=== PATIENT | female | born 1950 | race Caucasian/White ===

== ENCOUNTER 2019-06-19 09:39 | Outpatient (CLI) | payer MEDICARE, OTHER, SELFPAY ==
--- NOTE | 2019-06-19 | XR_ITS ---
WS: [id number] CHEST 2 VIEWS HISTORY: COUGH COMPARISON: 06/20/2013 Lungs: Clear with no abnormality. No pleural effusion or pneumothorax. Cardiac size: Normal. Mediastinum/Aorta: Mild atherosclerosis aorta. Bones: Normal. XR/XR chest 2V* [id number] IMPRESSION: Mild atherosclerosis aorta. No acute findings.
== END 2019-06-19 09:40 | disposition home or self-care (01) ==
PROVIDERS: Family Provider Physician Assistant; PCP Physician Assistant; Visit Provider Physician Assistant
DX: Z76.89 Persons encountering health services in other specified circumstances (principal)

== ENCOUNTER 2019-08-17 06:04 | Day surgery (SDC) | payer MEDICARE, OTHER, SELFPAY ==
[2019-08-17] VITALS (16 sets, daily range): BP systolic 98–152; BP diastolic 66–98; PULSE 58–99; RESP 12–18; TEMP 36.4–36.8; O2SAT 95–100; BMI 29.2; BMI 30.2
--- NOTE | 2019-08-17 05:56 | XACV_ITS ---
Exam Room: 1 Ht: 152 cm Wt: 68 kg BSA: 1.72 m2 Gender: Female : 1950 Any Known Allergies: Other Exam Priority: Routine Procedure(s): Procedure Description: Diagnostic procedure Procedure Description: Left Heart Catheterization Procedure Description: Left ventriculography Procedure Description: Coronary Angiography Diagnostic Cath Status: Elective Diagnostic Findings Patient has a previously placed proximal LAD stent. At that time she had fairly atypical angina and her stress test was normal. Since then she has been very nervous about the recurrence of her coronary disease. She has been having chest pain off and on. She has refused stress testing because of the previous false negative. She requested coronary angiography. Coronary angiography reveals right coronary artery dominance. Her coronary arteries are normal. The previously placed LAD stent is widely patent without any evidence of restenosis. Conclusions Normal coronary arteries with patent left anterior descending stent. Normal left ventricular function. Interventional RX Recommendation: none Diagnostic RX Recommendation: none LV EDP: 65 mmHg Ejection Fraction: 65.0 % Pressures Phase:Rest AO : 136 mmHg / 69 mmHg ( 96 mmHg ) @ 2:49:00 AM 129 mmHg / 65 mmHg ( 93 mmHg ) @ 2:56:00 AM 130 mmHg / 55 mmHg ( 92 mmHg ) @ 2:56:00 AM LV : 131 mmHg / -8 mmHg / @ 2:55:00 AM 136 mmHg / -6 mmHg / @ 2:55:00 AM 120 mmHg / -6 mmHg / @ 2:56:00 AM 123 mmHg / -6 mmHg / @ 2:56:00 AM Valves Phase:DefaultPhase AV : 0.0 mmHg @ 7:59:45 AM 0.0 mmHg @ 7:59:45 AM AV Mean Gradient: 0.0 mmHg @ 7:59:45 AM Clinical Evaluation EBL: 5mL-10mL Procedural Details Procedure Consent Obtained. Current Diagnosis : Chest Pain. Pre-Procedure Time Out. Identified patient by full name and date of as verbalized by the patient/guarantor. Does the consent match the physician's order: Yes. Accurate & Complete Informed Consent: Yes. Inpatient/Outpatient History & Physical on Chart: Yes. If H&P is completed, is and addenduem needed: No; If yes, is the addendum complete: No. Visualize and Verify Site with Patient/Guarantor: N/A. Relevant Radiology Images available: Yes. The risks, benefits, and alternatives of sedation and/or procedure were discussed by physician. The patient agrees to continue. Procedure started. [facility] Clinical Fraility Score: 3: Managing Well. Registered Nurse Float Pool Indications: Stable Known CAD. Chest Pain Symptom Assessment: Atypical Angina. Cardiovascular Instability: No. Correct patient, site and procedure confirmed by cath team. Current diagnosis: Stable known CAD. PERRLA. Strong, equal hand supervisor industrial garment bilaterally. Lungs clear x 5 lobes. IV Site on Arrival: 20 gauge in the right anticubital. IV Fluids: 0.9% NaCl at KVO. 0 mL infused prior to laboratory scientist. Pre Procedural Pulses: bilateral dorsalis pedis was Doppled. Pre Procedural Pulses: bilateral posterior tibial was Doppled. Pre Procedural Pulses: bilateral radial was 2+. Oxygen started at 2liters/min via nasal canula. bilateral groins was prepped with chloroprep then draped in the usual sterile fashion. Physician notified. Baseline sample Acquired. HR: 73 BPM. Patient's family unavailable. Equipment: 5F - Femoral. Physician arrived. Heparinized Saline (2 units/mL), 1000 mL bag. Cardiac Cath Pack. ACIST Manifold Kit Model BT 2000. Inventory is JJ 5F 11cm Selin Plus Sheath. Physician scrubbed in. Immediate Pre-Procedure Time Out. Correct Patient: Yes; Correct Procedure: Yes; Correct Site: Yes; Correct Patient Position: Yes; Correct Supplies: Yes; Dried Flammable Prep: Yes; Blood Products Available: N/A;. Lidocaine 1% infiltrated to the right groin. Arterial access obtained. A CRD 5F JL4 Diagnostic Catheter was advanced over the wire and used for Left coronary angiography. Multiple views taken of left coronary artery. Sindi Martino RN, ENROBER TENDER was relieved by RT Drew(R), ENROBER TENDER as monitoring person. Catheter out. A CRD 5F JR4 Diagnostic Catheter was advanced over the wire and used for Right coronary angiography. Multiple views taken of right coronary artery. Catheter out. A CRD 5F 145 Angled Pig Diagnostic Catheter was advanced over the wire and used for Ventriculography. EDP Sample taken: LV 131/-9,14; HR: 71 BPM; SpO2: 97%. LV gram performed in HOLT @ 10 mL/second for a total of 30 mL. Patient EF: Normal. LV EDP: 65. EDP Sample taken: LV 120/-7,13; HR: 74 BPM; SpO2: 99%. Pullback taken: LV 123/-7,14; AO 129/65(93); Mean: 0mmHg, Peak to Peak: 0mmHg, SEP: 7sec/min; HR: 72 BPM; SpO2: 99%. Physician scrubbed out. A Suture was successful obtaining hemostatsis at the Right Femoral artery insertion site. Sheath(s) sutured into position with 2-0 silk and sterile 4x4's and Op-site applied over the site. No oozing or signs and symptoms of hematoma noted. Arterial sheath flushed and connected to tranducer and pressure bag with heparinized saline. Post Procedure: Pulses reassessed and unchanged. PERRLA. Strong, equal hand supervisor industrial garment bilaterally. No VTE prophylaxis required. Medication's Wasted: Lidocaine 1% = 10 mL. Medication's Wasted: Heparin = 4000 mL. Medication's Wasted: Fentanyl = 50 mcg. Total IV fluids: 200 mL. Fluoro: 1:07. Contrast type used: Omnipaque 300 mgI/mL, 500 mL bottle. [id number]. Post-op diagnosis: Chest Pain. Complications: None. Estimated blood loss: 5mL-10mL. Procedure completed. Patient transferred by bed to ICU. Site: Right Femoral artery Sheath Size: 5 Fr Hemostasis Method: Suture Hemostasis Success: Successful Procedure Medications Start: 7:38 AM Stop: 7:38 AM Medication: Versed Amount: 1 mg Route: I.V. Start: 7:38 AM Stop: 7:38 AM Medication: Fentanyl Amount: 50 mcg Route: I.V. Start: 7:46 AM Stop: 7:46 AM Medication: Versed Amount: 1 mg Route: I.V. I, the attending physician, have reviewed and verified all procedure medications. Yes, all medications given per verbal order History/Risk Factors Hypertension: Yes Dyslipidemia: Yes Peripheral Arterial Disease (PAD): No Myocardial Infarction (NV): No Obesity: No Renal Disease: No Tobacco Use: Never Prior Interventions PCI: Yes CABG: No Valve Surgery: No Date of PCI: 05/06/2018 Report Signatures Finalized by:Dr. Feliz Langston MD on 08/17/2019 8:13:04 AM
[2019-08-17] MEDS: diphenhydrAMINE 50 mg Capsule PO (06:22)
[2019-08-17 06:52] LABS: Basophils % 0.7 %; Eosinophils # 0.2 10^3/uL (0.0-0.8); Eosinophils % 3.9 %; Hematocrit 41.5 % (37.0-47.0); Hemoglobin 13.1 g/dL (11.5-15.3); Lymphocytes # 2.5 10^3/uL (0.8-4.8); Mean Corpuscular HGB Conc 31.6 g/dL (30.0-36.0); Mean Corpuscular Hemoglobin 27.7 pg (28.0-34.0); Mean Corpuscular Volume 87.7 fL (81-99); Mean Platelet Volume 11.1 fL (7.4-10.4); Monocytes # 0.4 10^3/uL (0.2-0.9); Monocytes % 7.8 %; Neutrophils # 2.4 10^3/uL (1.8-7.7); Neutrophils % 43.2 %; Nucleated Red Blood Cells % 0 %; Platelet Count 366 10^3/cmm (130-400); Red Blood Count 4.73 10^6/uL (4.1-5.3); Red Cell Distribution Width 13.9 % (12.1-15.1); White Blood Count 5.6 10^3/uL (4.0-10.0)
[2019-08-17 07:01] LABS: Blood Urea Nitrogen 11 mg/dL (8-23); Calcium 9.4 mg/dL (8.5-10.5); Carbon Dioxide 26 mmol/L (22-29); Chloride 103 mmol/L (98-107); Glomerular Filtration Rate 62.6 mL/min (90-130); Glucose 104 mg/dL (65-115); Osmolality Calculated 288 mOsm/kg (285-295); Sodium 141 mmol/L (136-145)
--- NOTE | 2019-08-17 07:23 | P.HP_ITS ---
Providers/Chief Complaint Admitting Physician: Ivis Primary Care Provider: Estrella Fabian Chief Complaint: Chest Pain History of Present Illness Jihan Sears is a 68 year old female who is being admitted for purposes of coronary angiography. She had an LAD stent placed about a year ago. Since then she has been fairly nervous about her coronary anatomy. She has hypertension, dyslipidemia, Schultz's esophagus, GERD and rheumatoid arthritis. She called on 25 June and wanted to be seen because of chest pain. She saw the nurse practitioner. Prior to that she had influenza. EKG was unremarkable. I spoke to her on that day as well and we agreed to simply watch her until I saw her on the . When I saw her then she had less discomfort but still had a funny sensation in her chest. She gets short of breath at night. She also has shooting sensations into her jaw. She then called back a couple weeks later stating that the chest pain was back and that she felt like she needed to have coronary angiography. Review of Systems General: Reports: 10 or more systems reviewed and unremarkable except in HPI and below Medications/Allergies Home Medications Medication Instructions Recorded Confirmed Last Taken Type aspirin 81 mg tablet,delayed 81 mg PO DAILY 06/26/19 08/16/19 08/16/19 08:30 History release simvastatin 40 mg tablet 40 mg PO DAILY 06/26/19 08/16/19 08/16/19 18:30 History clopidogrel 75 mg tablet 75 mg PO DAILY 07/10/19 08/16/19 08/17/19 04:45 History famotidine 20 mg tablet 20 mg PO BID 07/10/19 08/16/19 08/16/19 18:30 History levocetirizine 5 mg tablet 5 mg PO BID tab 07/10/19 08/16/19 08/16/19 18:30 History levothyroxine 125 mcg PO DAILY 08/16/19 08/16/19 08/17/19 04:45 History pantoprazole 40 mg PO DAILY 08/16/19 08/16/19 08/17/19 04:45 History Allergies Allergy/AdvReac Type Severity Reaction Status Date / Time tetanus toxoid, adsorbed Allergy facial Verified 08/17/19 07:01 swelling PFSH Acute PFSH: Medical History Barretts esophagus CAD (coronary artery disease) Dyslipidemia GERD (gastroesophageal reflux disease) HTN (hypertension) Presence of stent in LAD coronary artery Rheumatoid arthritis Family History Father CAD (coronary artery disease) Family history of premature coronary artery disease Hypertension Mother CAD (coronary artery disease) Grandfather CAD (coronary artery disease) Family/Other Cancer Diabetes Suicide Sister Diabetes Denies family history of Clotting disorder Dementia Hyperlipidemia Psychiatric illness Chronic kidney disease (CKD) Anesthesia complication Bleeding disorder Lung disease Stroke Social History Smoking and tobacco status: never smoked Second hand smoke exposure: Yes Alcohol intake: never Vitals/I&O/Wt Last Vital Signs Temp 98.3 F 08/17/19 06:54 Pulse 81 08/17/19 06:54 Resp 18 08/17/19 06:54 BP 152/98 08/17/19 06:54 Pulse Ox 99 08/17/19 06:54 Weight last 48 hrs Weight 150 lb Weight 150 lb Physical Exam 2 Narrative: EXAM NARRATIVE: GENERAL: In general she looks and feels well HEENT: Exam within normal limits. NECK: Supple without jugular vein distention. The carotid upstroke is normal without bruits. BACK: Exam normal. LUNGS: Clear. HEART: Regular rate and rhythm. ABDOMEN: Benign without organomegaly or tenderness. EXTREMITIES: No edema. NEUROLOGIC: Exam normal. SKIN: Unremarkable. Data : 08/17/19 06:40 08/17/19 06:40 A&P Assessment and plan (1) HTN (hypertension): Status: Acute (2) Presence of stent in LAD coronary artery: Status: Acute (3) Dyslipidemia: Status: Acute (4) CAD (coronary artery disease): Status: Acute Additional A&P Information She will undergo coronary angiography. Previous procedure could not be accomplished via the wrist so we will use a groin approach. Attestations Medical Necessity Statement*: Outpatient in a bed. Expected discharge later today. Coding Level of Care Code New Pt Acute Maintenance Scheduler for Liana Fwd Patient Type New History Detailed Exam Detailed Medical Decision Making Moderate Complexity Diagnoses HTN (hypertension) I10 Presence of stent in LAD coronary artery Z95.5 Dyslipidemia E78.5 CAD (coronary artery disease) I25.10
--- NOTE | 2019-08-17 08:01 | W.PM.OPSUD ---
Surgery/Procedure H&P Update DATE OF PROCEDURE: August 17, 2019 DATE H&P PERFORMED: 08/17/19 PLANNED PROCEDURE: Operation Date: 08/17/19 07:00 Proposed Procedures p Cardiac Catheterization(Left) - Feliz Langston MD PATIENT REASSESSED PRIOR TO SEDATION, WITH NO CHANGE NOTED: Yes PHYSICAL EXAM: alert, oriented x 3, clear to auscultation bilaterally, regular rate & rhythm and operative site marked AIRWAY EVAL/ANESTHESIA PLAN: normal airway, ASA II, Local Anesthesia, Risks, benefits & alternatives of sedation and/or procedure discussed and Patient agrees to continue as planned
[2019-08-17] MEDS: sodium chloride 0.9% 1,000 ML 100 ML IV (09:03)
--- NOTE | 2019-08-17 14:32 | PC.NURSE ---
PATIENT SLEPT WELL INBETWEEN PULSE AND SITE CHECKS. UP TIME WAS 1345 WE AMBULATED THE UNIT AND SHE DID EXCELLENT. VITALS WNL. SITE STABLE. IV SITE REMOVED PRIOR TO DISCHARGE. HER ACTUAL SHEATH REMOVAL WAS UNEVENTFUL, PRESSURE HELD FOR 20 MIN NO HEMATOMA OR BLEEDING EXPERIENCED.
== END 2019-08-17 14:40 | disposition home or self-care (01) ==
LOC: CCL 06:06 → ICU 07:14
PROVIDERS: Family Provider Physician Assistant; PCP Physician Assistant; Visit Provider Internal Medicine Cardiovascular Disease
DX: I10 Essential (primary) hypertension (principal); Z95.5 Presence of coronary angioplasty implant and graft; E78.5 Hyperlipidemia, unspecified; I25.10 Atherosclerotic heart disease of native coronary artery without angina pectoris; Z82.49 Family history of ischemic heart disease and other diseases of the circulatory system
CPT/HCPCS: 12345; 36415; 80048; 85025; 93452; C1769; C1887; C1894; J1644; J2001; J2250; J3010; J7030; Q0163; Q9967

== ENCOUNTER → 2019-08-24 12:00 | Outpatient (BNVA) | payer MEDICARE, OTHER, SELFPAY | PROVIDERS: Family Provider Physician Assistant; PCP Physician Assistant; Visit Provider Nurse Practitioner Family | DX: I25.10 Atherosclerotic heart disease of native coronary artery without angina pectoris (principal) | CPT/HCPCS: 80048 ==

== ENCOUNTER 2020-02-23 08:48 | Outpatient (CLI) | payer MEDICARE, OTHER, SELFPAY ==
--- NOTE | 2020-02-23 08:53 | NM_ITS ---
WS: [id number] THREE-PHASE BONE SCAN HISTORY: KNEE REPLACEMENT, LEFT lateral knee pain. Replacement 18 years ago. COMPARISON: 01/18/2020 radiographs. Patient is is injected with 25.6 mCi Tc99m HDP intravenously. Immediate angiographic phase imaging is performed over the area of concern. Static blood pool imaging also performed. Two-hour whole-body sc intigrams performed in anterior and posterior projections. Additional large field of view imaging sub mitted as necessary. 3 phase bone scan imaging centered over the knees. There is a photopenic defect in the LEFT knee cent rally from the knee replacement hardware. There is no increased uptake on the angiographic or blood p ool phases. Mild increased uptake in the medial RIGHT lateral tibial plateau from osteoarthritis. There is very m inimal increased uptake on the delayed imaging of the LEFT knee along the tibial plateau. Most likely due to arthritis. No evidence for loosening on the radiographs. Mild degenerative changes at the AC joints bilaterally within the hips bilaterally. NM/NM bone 3 phase [id number] IMPRESSION: 1. No evidence for osteomyelitis involving the LEFT knee arthroplasty. Mild in creased uptake along the tibial plateau of the LEFT knee is probably due to ost eoarthritis. 2. Mild degenerative osteoarthritis involving the medial RIGHT tibial plateau.
== END 2020-02-23 08:49 | disposition home or self-care (01) ==
PROVIDERS: PCP Physician Assistant; Visit Provider Physician Assistant
DX: M25.562 Pain in left knee (principal); Z98.890 Other specified postprocedural states; Z96.652 Presence of left artificial knee joint; M17.11 Unilateral primary osteoarthritis, right knee
CPT/HCPCS: 78315; A9561

== ENCOUNTER 2020-10-30 06:00 | Outpatient (RCR) | payer MEDICARE, OTHER, SELFPAY | END 2020-11-23 23:59 | disposition home or self-care (01) | LOC: SPT 06:00 | PROVIDERS: PCP Physician Assistant; Referring Provider Student in an Organized Health Care Education/Training Program; Visit Provider Student in an Organized Health Care Education/Training Program | DX: Z47.1 Aftercare following joint replacement surgery (principal); Z96.651 Presence of right artificial knee joint | CPT/HCPCS: 97110; 97161 ==

== ENCOUNTER 2020-11-24 06:00 | Outpatient (RCR) | payer MEDICARE, OTHER, SELFPAY | END 2020-12-24 23:59 | disposition home or self-care (01) | LOC: SPT 06:00 | PROVIDERS: PCP Physician Assistant; Referring Provider Student in an Organized Health Care Education/Training Program; Visit Provider Student in an Organized Health Care Education/Training Program | DX: Z47.1 Aftercare following joint replacement surgery (principal); Z96.651 Presence of right artificial knee joint | CPT/HCPCS: 97110 ==

== ENCOUNTER 2020-12-16 11:35 | Outpatient (CLI) | payer MEDICARE, OTHER, SELFPAY ==
--- NOTE | 2020-12-16 11:43 | MM_ITS ---
WS: [id number] BILATERAL DIGITAL SCREENING MAMMOGRAPHY WITH CAD CLINICAL INFORMATION: SCREENING HISTORY: Screening mammogram. No current complaints. COMPARISON: September 14, 2018 TECHNIQUE: Bilateral CC and MLO views. FINDINGS: Scattered fibroglandular densities bilaterally. Stable intramammary lymph nodes outer right breast. N o suspicious focal mass, asymmetry, calcifications, or architectural distortion. No evidence of malig gifty. MM/[place] [id number] IMPRESSION: BI-RADS: 2-Benign FOLLOW UP: 1 Year Follow-up Recommend return to annual screening mammography.
== END 2020-12-16 11:36 | disposition home or self-care (01) ==
LOC: RADSHAW 11:41
PROVIDERS: PCP Physician Assistant; Visit Provider Physician Assistant
DX: Z12.31 Encounter for screening mammogram for malignant neoplasm of breast (principal)
CPT/HCPCS: 77067

== ENCOUNTER 2021-02-16 10:56 | Emergency (ER) | payer MEDICARE, OTHER, SELFPAY ==
[2021-02-16 11:07] VITALS: BP 165/87; PULSE 64; RESP 16; TEMP 37; O2SAT 100; BMI 25.4
--- NOTE | 2021-02-16 11:13 | CTR_ITS ---
PROCEDURE INFORMATION: Exam: CTA Chest With Contrast Exam date and time: 02/16/2021 11:13 AM Age: 70 years old Clinical indication: Other: Rlq and flank pain; Abdominal pain; Localized; Right lower quadrant (rlq); Additional info: Eval aaa TECHNIQUE: Imaging protocol: Computed tomographic angiography of the chest with contrast. 3D rendering (Not supervised by radiologist): MIP and/or 3D reconstructed images were created by the technologist. Radiation optimization: All CT scans at this facility use at least one of these dose optimization techniques: automated exposure control; mA and/or kV adjustment per patient size (includes targeted exams where dose is matched to clinical indication); or iterative reconstruction. Contrast material: OMNI 350; Contrast volume: 95 ml; Contrast route: INTRAVENOUS (IV); COMPARISON: CR Hip 2-3v RIGHT wwo Pelv* [id number] 12/13/2017 3:32 PM RADIATION DOSE METRICS: Total DLP (mGy-cm): 632.65 FINDINGS: Limitations: The images of the chest again at the bottom of the aortic arch. The aortic arch and above are not imaged in the study. Pulmonary arteries: Normal. No pulmonary emboli. Aorta: There is mild calcification of the visualized portion of the thoracic aorta. No aortic dilatation or dissection is seen in the visible portion aorta. Lungs: Unremarkable. No consolidation. No masses. Pleural spaces: Unremarkable. No pneumothorax. No pleural effusion. Heart: Heart is mildly enlarged. There is coronary artery calcification. Lymph nodes: Unremarkable. No enlarged lymph nodes. Diaphragm: There is a small sliding hiatal hernia. Bones/joints: Degenerative changes are present in the spine with scattered sclerosis and osteophytes. Soft tissues: Unremarkable. IMPRESSION: 1. Hiatal hernia. 2. Coronary artery calcification. 3. Mild atherosclerotic plaquing in the visualized portion of the thoracic aorta but no aneurysm or dissection seen. PROCEDURE INFORMATION: Exam: CTA Abdomen and Pelvis With Contrast Exam date and time: 02/16/2021 11:13 AM Age: 70 years old Clinical indication: Other: Rlq and flank pain; Abdominal pain; Localized; Right lower quadrant (rlq); Additional info: Eval aaa TECHNIQUE: Imaging protocol: Computed tomographic angiography of the abdomen and pelvis with contrast material. 3D rendering (Not supervised by radiologist): MIP and/or 3D reconstructed images were created by the technologist. Radiation optimization: All CT scans at this facility use at least one of these dose optimization techniques: automated exposure control; mA and/or kV adjustment per patient size (includes targeted exams where dose is matched to clinical indication); or iterative reconstruction. Contrast material: OMNI 350; Contrast volume: 95 ml; Contrast route: INTRAVENOUS (IV); COMPARISON: CR Hip 2-3v RIGHT wwo Pelv* [id number] 12/13/2017 3:32 PM RADIATION DOSE METRICS: Total DLP (mGy-cm): 632.65 FINDINGS: Aorta: There is atherosclerotic calcification of the aorta and iliac arteries. There is no aortic aneurysm or dissection. Celiac trunk and mesenteric arteries: No occlusion or significant stenosis. Renal arteries: No occlusion or significant stenosis. Right iliac arteries: No occlusion or significant stenosis. Left iliac arteries: No occlusion or significant stenosis. Liver: There is a benign 18 mm cyst in the right lobe of the liver. Gallbladder and bile ducts: Cholecystectomy. Normal bile ducts. Pancreas: Unremarkable. No mass. No ductal dilation. Spleen: Unremarkable. No splenomegaly. Adrenal glands: Unremarkable. No mass. Kidneys and ureters: Unremarkable. No solid mass. No hydronephrosis. Stomach and bowel: There is prominence of the amount of stool in the colon and rectum which may indicate constipation. There is no bowel obstruction or dilatation. Appendix: No evidence of appendicitis. Intraperitoneal space: Unremarkable. No free air. No significant fluid collection. Lymph nodes: Unremarkable. No enlarged lymph nodes. Urinary bladder: Unremarkable. No mass. Reproductive: Unremarkable as visualized. Bones/joints: Chronic degenerative changes are present in the spine with joint space narrowing sclerosis and osteophytes. No acute bony abnormality. Soft tissues: Unremarkable. CT/CT angio abdomen pelvis [id number] IMPRESSION: 1. No acute abnormalities are seen in the abdomen and pelvis. No evidence of aortic aneurysm or dissection. 2. Prominent amount of stool in the colon may indicate constipation. Radiation Dose CTDIVOL = (mGy): DLP = 632.65~632.65 (mGy-cm)
--- NOTE | 2021-02-16 11:14 | ECG_ITS ---
[facility] Test Date: 2021-02-16 Pat Name: Jihan Sears Department: Room: Gender: Female Clinical Project Leader: : 1950 Requested By: Mone Castro Order Number: [id number] Iraida MD: Kiki Govea M.D. Measurements Intervals Dumont Rate: 50 P: 41 PA: 156 QRS: -3 QRSD: 92 T: 13 QT: 448 QTc: 409 Interpretive Statements SINUS BRADYCARDIA LOW QRS VOLTAGE IN PRECORDIAL LEADS [QRS DEFLECTION < 1.0 mV IN CHEST LEADS] No previous ECG available for comparison Electronically Signed On 02-16-2021 18:40:22 CDT by Kiki Govea M.D. [id number]
--- NOTE | 2021-02-16 11:39 | W.ED.GENADLT ---
HPI - General Adult General: Chief complaint: Nausea/Vomiting/Diarrhea Stated complaint: R FLANK, NAUSEA, LIGHT HEADED Time Seen by Provider: 02/16/21 11:15 History of Present Illness: HPI narrative: Patient is a 70-year-old female with history of cholecystectomy, prior tubal ligation presenting to the emergency room with sided flank pain with nausea since yesterday. Patient says that she was at home sitting when this all started. Patient denies any dysuria/polyuria/hematuria. Patient reports significant nausea despite no vomiting. Patient reports decreased p.o. intake. No history of smoking, aortic aneurysm, high blood pressure. Patient has no new vaginal discharge, melena or hematochezia. No complaints of chest pain shortness breath, palpitation at this time. Reports mild lightheadedness whenever she has episodes of pain. No history of kidney stones in the past. Onset: 1 day ago Duration:1 day Location:home Severity: modeate Review of Systems Narrative: Constitutional: No fever, no chills. HEENT: No vision changes CV: No chest pain, no palpitations PULM: no cough, no dyspnea. GI: +R lateral abdominal pain, +N/-V/-D. : No dysuria MSKEL: No muscle pain SKIN: No new rashes, no lesions. NEURO: No headache, no focal weakness. +occasional light-headedness HEME: No visible bruises PSYCH: Normal mood PFSH ED PFSH: Medical History Barretts esophagus CAD (coronary artery disease) Dyslipidemia GERD (gastroesophageal reflux disease) HTN (hypertension) Presence of stent in LAD coronary artery Rheumatoid arthritis Family History Father CAD (coronary artery disease) Family history of premature coronary artery disease Hypertension Mother CAD (coronary artery disease) Grandfather CAD (coronary artery disease) Family/Other Cancer Diabetes Suicide Sister Diabetes Denies family history of Clotting disorder Dementia Hyperlipidemia Psychiatric illness Chronic kidney disease (CKD) Anesthesia complication Bleeding disorder Lung disease Stroke Social History Smoking and tobacco status: never smoked Second hand smoke exposure: Yes Alcohol intake: never Female Reproductive History: Date of last menstrual period: 07/18/20 Physical Exam Narrative: EXAM NARRATIVE: Head: Atraumatic Eyes: PERRL, conjunctiva without injection ENT: Mucous membrane moist NECK: Supple, ROM intact LUNGS: LCTAB, no crackles/rhonchi CV: RRR ABDOMEN: Soft, +R lateral flank tenderness to palpation. NO guarding rebound, guarding, rigidity. +R CVA tenderness to percussion. Neg Zarate/Neg McBurney's point tenderness, no suprabupic tenderness to palpation. EXTREMITY: Normal ROM SKIN: No rash or erythema NEURO: Awake and alert, no focal motor deficits PSYCH: Normal mood and affect Course Vital Signs: Vital signs: Vital Signs Temperature 98.6 F 02/16/21 11:07 Pulse Rate 65 02/16/21 14:16 Respiratory Rate 16 02/16/21 11:57 Blood Pressure 165/87 02/16/21 11:07 Pulse Oximetry 100 02/16/21 14:16 MDM - General Adult MDM Narrative: Medical decision making narrative: 62-year-old patient presenting to the emergency room for evaluation of sided flank pain, nausea/decreased p.o. intake. On exam, patient has right flank tenderness but CVA tenderness. Rest of exam within normal limit. Come: CBC, CMP, lipase, UA, CT abdomen+pelvis, EKG, troponin Intervention: IVF and morphine On reassessment, white count within normal limit. EKG nonischemic, troponin within normal limit. CT abdomen pelvis not showing signs of aortic aneurysm. Patient has signs of UTI on UA. Given onset of flank pain, this could be early pyelonephritis. This time, patient has no leukocytosis, afebrile, is able to tolerate p.o. we will treat outpatient with Bactrim DS x14 days. No signs of hydronephrosis. Patient is noted to have colonic stool. Findings discussed extensively with patient who agrees with outpatient follow-up at this time. Rx bactrim DS x 14 days for early pyelonephritis and zofran PRN for nausea/vomiting Disposition: Discharge. Patient counseled regarding diagnostic impression, treatment plan. Patient given ED strict return precautions to return for continuation, worsening, or development of new symptoms. Instructed to f/u w/ PCP regarding symptoms today. Patient verbalized understanding. Lab Data: Labs: Lab Results 02/16/21 02/16/21 02/16/21 11:30 11:30 11:30 WBC 6.3 10^3/uL 10^3/ uL (4.0-10.0) RBC 4.84 10^6/uL 10^6 /uL (4.1-5.3) Hgb 12.9 g/dL g/dL (11.5-15.3) Hct 42.9 % % (37.0-47.0) MCV 88.6 fl fl (81-99) MCH 26.7 pg L pg (28.0-34.0) MCHC 30.1 g/dL g/dL (30.0-36.0) RDW 13.7 % % (12.1-15.1) Plt Count 378 10^3/cmm 10^3 /cmm (130-400) MPV 11.0 fL H fL (7.4-10.4) Neut % (Auto) 62.0 % % Lymph % (Auto) 27.5 % % Sebastian % (Auto) 7.5 % % Eos % (Auto) 1.6 % % Baso % (Auto) 1.1 % % Neut # (Auto) 3.90 10^3/uL 10^3 /uL (1.8-7.7) Lymph # (Auto) 1.7 10^3/uL 10^3/ uL (0.8-4.8) Sebastian # (Auto) 0.5 10^3/uL 10^3/ uL (0.2-0.9) Eos # (Auto) 0.1 10^3/uL 10^3/ uL (0.0-0.8) Baso # (Auto) 0.1 10^3/uL 10^3/ uL (0.0-0.1) Nucleated RBC % (a uto) 0 % % Nucleated RBCs # 0.0 /100WBC /100W BC Sodium 142 mmol/L mmol/L (136-145) Potassium 4.5 mmol/L mmol/L (3.5-5.1) Chloride 106 mmol/L mmol/L (98-107) Carbon Dioxide 26 mmol/L mmol/L (22-29) Anion Gap 14.5 (5-19) BUN 10 mg/dL mg/dL (8-23) Creatinine 0.7 mg/dL mg/dL (0.5-0.9) GFR Calculation 83.2 mL/min L mL/ min (90-130) Glucose 109 mg/dL mg/dL (65-115) Calculated Osmolal ity 294 mOsm/kg mOsm/ kg (285-295) Calcium 9.0 mg/dL mg/dL (8.5-10.5) Total Bilirubin 0.2 mg/dL mg/dL (0.15-1.2) AST 13 U/L U/L (0-32) ALT 9 U/L U/L (0-33) Alkaline Phosphata se 102 IU/L IU/L (35-105) Troponin T Gen 5 n g/L 7 ng/L ng/L (0-10) Total Protein 7.0 g/dL g/dL (6.6-8.7) Albumin 4.2 g/dL g/dL (3.5-5.2) Globulin 2.8 g/dL g/dL (1.3-4.6) Lipase 35 U/L U/L (13-60) Urine Color Urine Appearance Urine pH Ur Specific Gravit y Urine Protein Urine Glucose (UA) Urine Ketones Urine Blood Urine Nitrate Urine Bilirubin Urine Urobilinogen Ur Leukocyte Payton ase Urine RBC Urine WBC Ur Squamous Epith Cells Amorphous Sediment Urine Bacteria Urine Mucus Nasal/Oral COVID-1 9 PCR SARS-CoV-2 Ag (Rap id) 02/16/21 02/16/21 02/16/21 11:54 11:54 12:31 WBC RBC Hgb Hct MCV MCH MCHC RDW Plt Count MPV Neut % (Auto) Lymph % (Auto) Sebastian % (Auto) Eos % (Auto) Baso % (Auto) Neut # (Auto) Lymph # (Auto) Sebastian # (Auto) Eos # (Auto) Baso # (Auto) Nucleated RBC % (a uto) Nucleated RBCs # Sodium Potassium Chloride Carbon Dioxide Anion Gap BUN Creatinine GFR Calculation Glucose Calculated Osmolal ity Calcium Total Bilirubin AST ALT Alkaline Phosphata se Troponin T Gen 5 n g/L Total Protein Albumin Globulin Lipase Urine Color Yellow (Yellow) Urine Appearance Sl hazy (CLEAR) Urine pH 7 (5-7) Ur Specific Gravit y 1.010 (1.005-1.030) Urine Protein Neg (Negative) Urine Glucose (UA) Norm (Normal) Urine Ketones Negative (Negative) Urine Blood Neg (Negative) Urine Nitrate Negative (Negative) Urine Bilirubin Neg (Negative) Urine Urobilinogen Norm mg/dL mg/dL (Negative) Ur Leukocyte Payton ase 2+ H (Negative) Urine RBC None /hpf /hpf (0-2) Urine WBC 10-15 /hpf H /hpf (0-5) Ur Squamous Epith Cells Rare /hpf /hpf (0-5) Amorphous Sediment Not Reportable Urine Bacteria 4+ /hpf H /hpf (NONE) Urine Mucus Trace /hpf /hpf Nasal/Oral COVID-1 9 PCR Not detected SARS-CoV-2 Ag (Rap id) Negative (Negative) Imaging Data^: Other Imaging: Radiologist's impression: [employer] [id number] [place] [id number] Scan ReportSigned Patient: Jihan Sears #: [id number]: 3Acct#:[id number]/Sex: 70 / FADM Date: 02/16/21Loc: ERRoom/Bed:Attending Dr: Ordering Provider/Ordering MD: Mone Castro MD Date of Service: 02/16/21 Procedure(s): CT angio abdomen pelvis 83254 Accession Number(s): [id number] Report Number: [id number] PROCEDURE INFORMATION: Exam: CTA Chest With Contrast Exam date and time: 02/16/2021 11:13 AM Age: 70 years old Clinical indication: Other: Rlq and flank pain; Abdominal pain; Localized; Right lower quadrant (rlq); Additional info: Eval aaa TECHNIQUE: Imaging protocol: Computed tomographic angiography of the chest with contrast. 3D rendering (Not supervised by radiologist): MIP and/or 3D reconstructed images were created by the technologist. Radiation optimization: All CT scans at this facility use at least one of these dose optimization techniques: automated exposure control; mA and/or kV adjustment per patient size (includes targeted exams where dose is matched to clinical indication); or iterative reconstruction. Contrast material: OMNI 350; Contrast volume: 95 ml; Contrast route: INTRAVENOUS (IV); COMPARISON: CR Hip 2-3v RIGHT wwo Pelv* [id number] 12/13/2017 3:32 PM RADIATION DOSE METRICS: Total DLP (mGy-cm): 632.65 FINDINGS: Limitations: The images of the chest again at the bottom of the aortic arch. The aortic arch and above are not imaged in the study. Pulmonary arteries: Normal. No pulmonary emboli. Aorta: There is mild calcification of the visualized portion of the thoracic aorta. No aortic dilatation or dissection is seen in the visible portion aorta. Lungs: Unremarkable. No consolidation. No masses. Pleural spaces: Unremarkable. No pneumothorax. No pleural effusion. Heart: Heart is mildly enlarged. There is coronary artery calcification. Lymph nodes: Unremarkable. No enlarged lymph nodes. Diaphragm: There is a small sliding hiatal hernia. Bones/joints: Degenerative changes are present in the spine with scattered sclerosis and osteophytes. Soft tissues: Unremarkable. IMPRESSION: 1. Hiatal hernia. 2. Coronary artery calcification. 3. Mild atherosclerotic plaquing in the visualized portion of the thoracic aorta but no aneurysm or dissection seen. PROCEDURE INFORMATION: Exam: CTA Abdomen and Pelvis With Contrast Exam date and time: 02/16/2021 11:13 AM Age: 70 years old Clinical indication: Other: Rlq and flank pain; Abdominal pain; Localized; Right lower quadrant (rlq); Additional info: Eval aaa TECHNIQUE: Imaging protocol: Computed tomographic angiography of the abdomen and pelvis with contrast material. 3D rendering (Not supervised by radiologist): MIP and/or 3D reconstructed images were created by the technologist. Radiation optimization: All CT scans at this facility use at least one of these dose optimization techniques: automated exposure control; mA and/or kV adjustment per patient size (includes targeted exams where dose is matched to clinical indication); or iterative reconstruction. Contrast material: OMNI 350; Contrast volume: 95 ml; Contrast route: INTRAVENOUS (IV); COMPARISON: CR Hip 2-3v RIGHT wwo Pelv* [id number] 12/13/2017 3:32 PM RADIATION DOSE METRICS: Total DLP (mGy-cm): 632.65 FINDINGS: Aorta: There is atherosclerotic calcification of the aorta and iliac arteries. There is no aortic aneurysm or dissection. Celiac trunk and mesenteric arteries: No occlusion or significant stenosis. Renal arteries: No occlusion or significant stenosis. Right iliac arteries: No occlusion or significant stenosis. Left iliac arteries: No occlusion or significant stenosis. Liver: There is a benign 18 mm cyst in the right lobe of the liver. Gallbladder and bile ducts: Cholecystectomy. Normal bile ducts. Pancreas: Unremarkable. No mass. No ductal dilation. Spleen: Unremarkable. No splenomegaly. Adrenal glands: Unremarkable. No mass. Kidneys and ureters: Unremarkable. No solid mass. No hydronephrosis. Stomach and bowel: There is prominence of the amount of stool in the colon and rectum which may indicate constipation. There is no bowel obstruction or dilatation. Appendix: No evidence of appendicitis. Intraperitoneal space: Unremarkable. No free air. No significant fluid collection. Lymph nodes: Unremarkable. No enlarged lymph nodes. Urinary bladder: Unremarkable. No mass. Reproductive: Unremarkable as visualized. Bones/joints: Chronic degenerative changes are present in the spine with joint space narrowing sclerosis and osteophytes. No acute bony abnormality. Soft tissues: Unremarkable. CT/CT angio abdomen pelvis 36801 IMPRESSION: 1. No acute abnormalities are seen in the abdomen and pelvis. No evidence of aortic aneurysm or dissection. 2. Prominent amount of stool in the colon may indicate constipation. Radiation Dose CTDIVOL = (mGy): DLP = 632.65~632.65 (mGy-cm) Dictated By:Blaine Llamas By:Blaine Llamas Date/Time:02/16/21 1322DD/ 1113 Discharge Plan Discharge Patient Disposition: Home Clinical Impression: Acute flank pain, Nausea, Acute UTI Condition: Stable Prescriptions: New Bactrim DS 800-160 mg tablet 1 tab PO BID 14 Days Qty: 28 RF: 0 No Action famotidine 20 mg tablet 20 mg PO BID RF: 0 levocetirizine 5 mg tablet 5 mg PO BID RF: 0 aspirin 81 mg tablet,delayed release (DR/EC) 81 mg PO DAILY RF: 0 nitroglycerin 0.4 mg tablet, sublingual 0.4 mg sublingual Q5M PRN (Reason: chest pain) Qty: 25 RF: 2 simvastatin 40 mg tablet 40 mg PO DAILY Qty: 90 RF: 0 pantoprazole 40 mg tablet,delayed release (DR/EC) 40 mg PO DAILY Qty: 90 RF: 3 clopidogrel 75 mg tablet 75 mg PO DAILY Qty: 90 RF: 0 levothyroxine 125 mcg Tablet 125 mcg PO DAILY RF: 0 Discharge Orders: Discharge ED (Routine); Ordered 02/16/21 Ordered By: Mone Castro Referrals: Estrella Fabian PA [Primary Care Provider] - Patient Instructions: Dysuria (ED) Activity Restrictions/Additional Instructions: Please take your antibiotics as instructed. Take zofran as needed for nausea. Come back to the emergency room you have any fever chills, worsening pain, dehydration, nuasea/vomiting any new or concerning complaints. 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
[2021-02-16 11:41] LABS: Basophils # 0.1 10^3/uL (0.0-0.1); Basophils % 1.1 %; Eosinophils # 0.1 10^3/uL (0.0-0.8); Eosinophils % 1.6 %; Hematocrit 42.9 % (37.0-47.0); Hemoglobin 12.9 g/dL (11.5-15.3); Lymphocytes # 1.7 10^3/uL (0.8-4.8); Lymphocytes % 27.5 %; Mean Corpuscular HGB Conc 30.1 g/dL (30.0-36.0); Mean Corpuscular Hemoglobin 26.7 pg (28.0-34.0); Mean Corpuscular Volume 88.6 fl (81-99); Monocytes # 0.5 10^3/uL (0.2-0.9); Monocytes % 7.5 %; Nucleated Red Blood Cells % 0 %; Platelet Count 378 10^3/cmm (130-400); Red Blood Count 4.84 10^6/uL (4.1-5.3); Red Cell Distribution Width 13.7 % (12.1-15.1); White Blood Count 6.3 10^3/uL (4.0-10.0)
[2021-02-16 11:57] VITALS: RESP 16
[2021-02-16] MEDS: morphine 4 mg/mL SDV 1 mL 2 MG IVP (11:57)
[2021-02-16] MEDS: sodium chloride 0.9% 1,000 ML 999 ML IV (11:57)
[2021-02-16 12:04] LABS: Troponin T (5th) Once 7 ng/L (0-10)
[2021-02-16 12:05] LABS: Alanine Aminotransferase 9 U/L (0-33); Albumin Level 4.2 g/dL (3.5-5.2); Alkaline Phosphatase 102 IU/L (35-105); Anion Gap 14.5 (5-19); Aspartate Amino Transferase 13 U/L (0-32); Blood Urea Nitrogen 10 mg/dL (8-23); Carbon Dioxide 26 mmol/L (22-29); Chloride 106 mmol/L (98-107); Creatinine Clr Calc Pharmacy 56.4974; Globulin 2.8 g/dL (1.3-4.6); Glomerular Filtration Rate 83.2 mL/min (90-130); Glucose 109 mg/dL (65-115); Lipase 35 U/L (13-60); Osmolality Calculated 294 mOsm/kg (285-295); Potassium 4.5 mmol/L (3.5-5.1); Sodium 142 mmol/L (136-145); Total Bilirubin 0.2 mg/dL (0.15-1.2)
[2021-02-16 12:40] LABS: SARS Covid-2 Antigen Negative (Negative)
[2021-02-16] MEDS: iohexol 350 mg/mL 100 mL Btl IV (12:58)
[2021-02-16 13:37] LABS: Bilirubin Urine Neg (Negative); Blood Urine Neg (Negative); Glucose Urine UA Norm (Normal); Ketones Urine Negative (Negative); Nitrate Urine Negative (Negative); Protein Urine Neg (Negative); Urine Appearance SL Hazy (CLEAR); Urine Color Yellow (Yellow); pH Urine 7 (5-7)
[2021-02-16 13:38] LABS: Add Urine Microscopic? YES; Leukocyte Esterase Urine 2+ (Negative); Urobilinogen Urine Norm (Negative)
[2021-02-16 13:39] LABS: Add Urine Culture? Yes; Bacteria Urine 4+ /hpf; Mucus Urine TRACE /hpf; Squamous Epithelial Cell Urine RARE /hpf (0-5)
[2021-02-16 14:16] VITALS: PULSE 65; O2SAT 100
[2021-02-18 08:37] LABS: Coronavirus Test Green County Not Detected
== END 2021-02-16 14:16 | disposition home or self-care (01) ==
PROVIDERS: Emergency Provider Emergency Medicine; PCP Physician Assistant
DX: N39.0 Urinary tract infection, site not specified (principal); R10.9 Unspecified abdominal pain; R11.0 Nausea; I25.10 Atherosclerotic heart disease of native coronary artery without angina pectoris; I10 Essential (primary) hypertension; K21.9 Gastro-esophageal reflux disease without esophagitis; E78.5 Hyperlipidemia, unspecified; K22.70 Barrett's esophagus without dysplasia
CPT/HCPCS: 74174; 80053; 81001; 83690; 84484; 85025; 87077; 87086; 87186; 87426; 87635; 93005; 96361; 96374; 99283; J2270; J7030; Q9967

== ENCOUNTER → 2021-08-18 12:06 | Outpatient (BNVA) | payer MEDICARE, OTHER, SELFPAY | PROVIDERS: PCP Physician Assistant; Visit Provider Internal Medicine Cardiovascular Disease | DX: I25.10 Atherosclerotic heart disease of native coronary artery without angina pectoris (principal); K22.70 Barrett's esophagus without dysplasia; I10 Essential (primary) hypertension; Z95.5 Presence of coronary angioplasty implant and graft; E78.5 Hyperlipidemia, unspecified; Z79.82 Long term (current) use of aspirin | CPT/HCPCS: 99213; 99214 ==

== ENCOUNTER 2021-11-17 06:47 | Outpatient (CLI) | payer MEDICARE, OTHER, SELFPAY ==
--- NOTE | 2021-11-17 07:15 | MR_ITS ---
WS: [id number] MRA HEAD TECHNIQUE: Axial 3-D TOF images obtained with axial images and axial, sagittal, and coronal 2-D refor matted images. CLINICAL INFORMATION: TIA COMPARISON: CT 3 FINDINGS: Distal vertebral arteries are patent. Basilar artery is patent. Normal vascularity to the RATE AND COST ANALYST territo ry bilaterally. Both ICAs are patent at the skull base. Normal vascularity to the NURIS and MCA territories bilaterally . No evidence of flow-limiting stenosis or aneurysm. MR/MR angio head wo con [id number] IMPRESSION: Unremarkable intracranial MRA.
--- NOTE | 2021-11-17 08:00 | MR_ITS ---
WS: [id number] MRA CAROTID WITHOUT AND WITH GADOLINIUM ENHANCEMENT TECHNIQUE: Axial 2-D TOF and gadolinium bolus images obtained with axial images and axial, sagittal, and coronal 2-D reformatted images. CLINICAL INFORMATION: TIA COMPARISON: None. FINDINGS: Some images degraded by patient motion. LEFT dominant vertebral artery is patent. Smaller but patent RIGHT vertebral artery. RIGHT: RIGHT common carotid artery is patent. No significant RIGHT ICA stenosis. ICA is patent to the skull base. Retropharyngeal RIGHT cervical ICA. LEFT: LEFT common carotid artery is patent. No significant LEFT ICA stenosis. LEFT ICA is patent to t he skull base. MR/MR angio neck wo con [id number] IMPRESSION: Normal neck MRA.
== END 2021-11-17 06:48 | disposition home or self-care (01) ==
PROVIDERS: PCP Physician Assistant; Visit Provider Physician Assistant
DX: G45.9 Transient cerebral ischemic attack, unspecified (principal)
CPT/HCPCS: 70544; 70547

== ENCOUNTER → 2022-03-06 09:03 | Outpatient (BNVA) | payer MEDICARE, OTHER, SELFPAY | PROVIDERS: PCP Physician Assistant; Visit Provider Internal Medicine Cardiovascular Disease | DX: I25.10 Atherosclerotic heart disease of native coronary artery without angina pectoris (principal); K22.70 Barrett's esophagus without dysplasia; I10 Essential (primary) hypertension; E78.5 Hyperlipidemia, unspecified; Z95.5 Presence of coronary angioplasty implant and graft | CPT/HCPCS: 99213; 99214 ==

== ENCOUNTER → 2022-09-04 08:30 | Outpatient (BNVA) | payer MEDICARE, OTHER, SELFPAY | PROVIDERS: PCP Physician Assistant; Visit Provider Internal Medicine Cardiovascular Disease | DX: K22.70 Barrett's esophagus without dysplasia (principal); I10 Essential (primary) hypertension; Z95.5 Presence of coronary angioplasty implant and graft; E78.5 Hyperlipidemia, unspecified; I25.10 Atherosclerotic heart disease of native coronary artery without angina pectoris | CPT/HCPCS: 99213 ==

== ENCOUNTER 2023-01-11 13:51 | Outpatient (CLI) | payer MEDICARE, OTHER, SELFPAY ==
--- NOTE | 2023-01-11 13:55 | MM_ITS ---
WS: [id number] BILATERAL 3D TOMOSYNTHESIS DIGITAL SCREENING MAMMOGRAPHY WITH CAD CLINICAL INFORMATION: SCREENING HISTORY: Screening mammogram. No current complaints. COMPARISON: 2020 TECHNIQUE: Bilateral CC and MLO views. FINDINGS: Scattered fibroglandular densities bilaterally. No suspicious focal mass, asymmetry, calcifications, or architectural distortion. No evidence of malignancy. Incidental punctate calcifications. IMPRESSION: MM/[place] [id number] BI-RADS: 2-Benign FOLLOW UP: 1 Year Follow-up Recommend return to annual screening mammography.
== END 2023-01-11 13:52 | disposition home or self-care (01) ==
LOC: MOBLMAM 13:54
PROVIDERS: PCP Physician Assistant; Visit Provider Physician Assistant
DX: Z12.31 Encounter for screening mammogram for malignant neoplasm of breast (principal)
CPT/HCPCS: 77063; 77067

== ENCOUNTER → 2023-03-29 10:55 | Outpatient (BNVA) | payer MEDICARE, OTHER, SELFPAY | PROVIDERS: PCP Physician Assistant; Visit Provider Internal Medicine Cardiovascular Disease | DX: K22.70 Barrett's esophagus without dysplasia (principal); I10 Essential (primary) hypertension; Z95.5 Presence of coronary angioplasty implant and graft; E78.5 Hyperlipidemia, unspecified; I25.10 Atherosclerotic heart disease of native coronary artery without angina pectoris | CPT/HCPCS: 99213 ==

== ENCOUNTER 2023-08-09 17:08 | Emergency (ER) | payer MEDICARE, SELFPAY ==
--- NOTE | 2023-08-09 17:11 | XRR_ITS ---
PROCEDURE INFORMATION: Exam: XR Left Hip Exam date and time: 08/09/2023 6:37 PM Age: 72 years old Clinical indication: Injury or trauma; Fall; Blunt trauma (contusions or hematomas); Left; Hip TECHNIQUE: Imaging protocol: Radiologic exam of the left hip. Views: 2 or 3 views hip with pelvis when performed. COMPARISON: CT angio abdomen pelvis [id number] 02/16/2021 12:30 PM FINDINGS: Bones/joints: Subcapital femoral neck fracture with mild impaction and angulation. Hip remains located. Soft tissues: No acute findings . XR/XR hip LT 2-3V wo/w pel* [id number] IMPRESSION: Left femoral neck fracture.
[2023-08-09 17:23] VITALS: BP 124/73; PULSE 75; RESP 16; TEMP 36.6; O2SAT 95
--- NOTE | 2023-08-09 19:22 | ECG_ITS ---
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 Measurements Intervals [place] Rate: 77 P: 31 MD: 162 QRS: -20 QRSD: 87 T: 29 QT: 367 QTc: 417 Interpretive Statements SINUS RHYTHM LOW QRS VOLTAGE IN PRECORDIAL LEADS [QRS DEFLECTION < 1.0 mV IN CHEST LEADS] Nonspecific T wave changes POSSIBLE ANTERIOR MYOCARDIAL INFARCTION , PROBABLY OLD [30 ms Q WAVE IN V3/V4, OR R < 0.2 mV IN V4] Electronically Signed On 08-09-2023 19:40:08 CDT by Kiki Govea M.D. [id number]
--- NOTE | 2023-08-09 19:22 | XRR_ITS ---
PROCEDURE INFORMATION: Exam: XR Chest Exam date and time: 08/09/2023 7:27 PM Age: 72 years old Clinical indication: Injury or trauma; Fall; Blunt trauma (contusions or hematomas) TECHNIQUE: Imaging protocol: Radiologic exam of the chest. Views: 1 view. COMPARISON: CT angio abdomen pelvis [id number] 02/16/2021 12:30 PM FINDINGS: Lungs: No consolidation. Pleural spaces: No pleural effusion. No pneumothorax. Heart/Mediastinum: No cardiomegaly. Bones/joints: No acute findings. XR/XR chest 1V portable [id number] IMPRESSION: No acute findings.
--- NOTE | 2023-08-09 19:28 | ED_ITS ---
HPI - Fall General: Chief Complaint: Fall Stated Complaint: fall, left side hip Time Seen by Provider: 08/09/23 19:21 Source: patient Mode of arrival: ambulatory Limitations: no limitations History of Present Illness: 72-year-old female states that she had m issed a step and fell she had fell on her left side she has pain in her left hip. States not been able to bear any weight on that hip is much worse with movement improved with rest she rates her pain a 2 out of 10 currently denies hitting her head. Associated symptoms-after fall: Denies abdominal pain, chest pain, headache(s) or neck pain Review of Systems Const: Denies: fever(s), chills, body aches or change in appetite ENMT: Denies: throat pain or dental pain Card: Denies: chest pain Resp: Denies: dyspnea GI: Denies: abdominal pain, nausea, vomiting or diarrhea Musc: Reports: extremity pain; Denies: neck pain or back pain Skin/Breast: Denies: rash Neuro: Denies: headache(s) PFSH ED PFSH: Medical History Presence of stent in LAD coronary artery Rheumatoid arthritis Barretts esophagus GERD (gastroesophageal reflux disease) Dyslipidemia CAD (coronary artery disease) HTN (hypertension) Family History Father CAD (coronary artery disease) Family history of premature coronary artery disease Hypertension Mother CAD (coronary artery disease) Grandfather CAD (coronary artery disease) Family/Other Cancer Diabetes Suicide Sister Diabetes Denies family history of Clotting disorder Dementia Hyperlipidemia Psychiatric illness Chronic kidney disease (CKD) Anesthesia complication Bleeding disorder Lung disease Stroke Social History Smoking and tobacco/nicotine status: never used tobacco/nicotine Second hand smoke exposure: Yes Alcohol intake: never Substance/Drug Use: never Physical Exam Const: COMMON NORMALS: no acute distress, patient oriented x3 and healthy appearing HENMT: COMMON NORMALS: normocephalic and atraumatic HEAD & SCALP: normocephalic and atraumatic Neck/C-Spine: COMMON NORMALS: full ROM and supple Chest: COMMONS NORMALS: normal inspection of the chest Resp: COMMON NORMALS: normal respiratory effort Cardio: COMMON NORMALS: regular rate, regular rhythm and No murmurs present (Cardio) RATE: regular rate RHYTHM: regular rhythm Extremity: NARRATIVE EXTREMITY EXAM: Tenderness noted to left hip Neuro: COMMON NORMALS: patient oriented x3, moves all extremities and no focal motor deficits Psych: COMMON NORMALS: mental status grossly normal, Normal thought process present and cooperative THOUGHT PROCESS: Normal thought process present Skin: COMMON NORMALS: no rashes or lesions noted and no wounds GENERAL SKIN EXAM: no rashes or lesions noted Course Vital Signs: Vital signs: Vital Signs Temperature 97.9 F 08/09/23 17:23 Pulse Rate 75 08/09/23 17:23 Respiratory Rate 16 08/09/23 17:23 Blood Pressure 124/73 08/09/23 17:23 Pulse Oximetry 95 08/09/23 17:23 MDM - Fall Medical Decision Making Patient presents here with a left hip fracture from a fall x-ray shows fracture no other injuries noted I spoke to orthopedics along with hospitalist will admit Medical Records I reviewed the patient's medical records. Lab Data I reviewed the patient's lab results. Radiology Impressions Hip/Pelvis X-Ray 08/09/23 17:11 IMPRESSION: Left femoral neck fracture. 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
[2023-08-09 20:40] VITALS: RESP 20; O2SAT 98
[2023-08-09] MEDS: morphine 4 mg/mL SDV 1 mL IVP ×2 (20:40→21:28)
[2023-08-09] MEDS: ondansetron 2 mg/ML SDV 2 mL 4 MG IVP (20:40)
[2023-08-09 20:44] LABS: Basophils # 0.1 10^3/uL (0.0-0.1); Basophils % 0.4 %; Eosinophils # 0.1 10^3/uL (0.0-0.8); Eosinophils % 0.4 %; Hematocrit 42.8 % (36-47); Lymphocytes # 1.7 10^3/uL (0.8-4.8); Lymphocytes % 10.8 %; Mean Corpuscular HGB Conc 32.5 g/dL (30-55); Mean Corpuscular Hemoglobin 29.1 pg (27-33); Mean Corpuscular Volume 89.7 fl (85-98); Mean Platelet Volume 10.4 fL (7.4-10.4); Monocytes # 0.8 10^3/uL (0.2-0.9); Neutrophils # 12.99 10^3/uL (1.8-7.7); Neutrophils % 82.7 %; Nucleated Red Blood Cells % 0 %; Platelet Count 397 10^3/cmm (157-399); Red Blood Count 4.77 10^6/uL (3.85-5.65); Red Cell Distribution Width 13.2 % (12.1-15.1)
[2023-08-09 20:58] LABS: INR 0.89 (0.8-1.2)
[2023-08-09 20:59] VITALS: BP 118/72; PULSE 74; O2SAT 96
--- NOTE | 2023-08-09 20:59 | W.ED.FALL ---
HPI - Fall General: Chief Complaint: Fall Stated Complaint: fall, left side hip Time Seen by Provider: 08/09/23 19:21 Source: patient Mode of arrival: ambulatory [facility] ED PFSH: Medical History Presence of stent in LAD coronary artery Rheumatoid arthritis Barretts esophagus GERD (gastroesophageal reflux disease) Dyslipidemia CAD (coronary artery disease) HTN (hypertension) Family History Father CAD (coronary artery disease) Family history of premature coronary artery disease Hypertension Mother CAD (coronary artery disease) Grandfather CAD (coronary artery disease) Family/Other Cancer Diabetes Suicide Sister Diabetes Denies family history of Clotting disorder Dementia Hyperlipidemia Psychiatric illness Chronic kidney disease (CKD) Anesthesia complication Bleeding disorder Lung disease Stroke Social History Smoking and tobacco/nicotine status: never used tobacco/nicotine Second hand smoke exposure: Yes Alcohol intake: never Substance/Drug Use: never Course Vital Signs: Vital signs: Vital Signs Temperature 97.9 F 08/09/23 17:23 Pulse Rate 74 08/09/23 20:59 Respiratory Rate 20 H 08/09/23 20:40 Blood Pressure 118/72 08/09/23 20:59 Pulse Oximetry 96 08/09/23 20:59 Oxygen Delivery Me thod Room Air 08/09/23 20:59 MDM - Fall Medical Decision Making Patient presents here with a left hip fracture from a fall patient's had multiple surgeries at [facility] and she did not want to be admitted here and wanted to be transferred there for continuity of care with her orthopedic surgeon she has had up there before will transfer. Medical Records I reviewed the patient's medical records. Lab Data I reviewed the patient's lab results. 08/09/23 20:35 08/09/23 20:35 Radiology Impressions Hip/Pelvis X-Ray 08/09/23 17:11 IMPRESSION: Left femoral neck fracture. Chest X-Ray 08/09/23 19:22 IMPRESSION: No acute findings. Laboratory Results WBC 15.70 10^3/uL (3.29-11.43) H 08/09/23 20:35 RBC 4.77 10^6/uL (3.85-5.65) 08/09/23 20:35 Hgb 13.90 g/dL (11.27-16.99) 08/09/23 20: Hct 42.8 % (36-47) 08/09/23 20: MCV 89.7 fl (85-98) 08/09/23 20: MCH 29.1 pg (27-33) 08/09/23 20: MCHC 32.5 g/dL (30-55) 08/09/23 20: RDW 13.2 % (12.1-15.1) 08/09/23 20:35 Plt Count 397 10^3/cmm (157-399) 08/09/23 20: MPV 10.4 fL (7.4-10.4) 08/09/23 20: Neut % (Auto) 82.7 % 08/09/23 20: Lymph % (Auto) 10.8 % 08/09/23 20: Tillman % (Auto) 5.0 % 08/09/23 20: Eos % (Auto) 0.4 % 08/09/23 20: Baso % (Auto) 0.4 % 08/09/23 20:35 Neut # (Auto) 12.99 10^3/uL (1.8-7.7) H 08/09/23 20: Lymph # (Auto) 1.7 10^3/uL (0.8-4.8) 08/09/23 20:35 Tillman # (Auto) 0.8 10^3/uL (0.2-0.9) 08/09/23 20: Eos # (Auto) 0.1 10^3/uL (0.0-0.8) 08/09/23 20: Baso # (Auto) 0.1 10^3/uL (0.0-0.1) 08/09/23: Nucleated RBC % (auto) 0 % 08/09/23: Nucleated RBCs # 0.0 /100WBC 08/09/23 20:35 PT 12.30 SECONDS (12.1-14.9) 08/09/23 20:35 INR 0.89 (0.8-1.2) 08/09/23 20:35 All radiology interpretation(s) finalized by discharge Discharge Plan Discharge Patient Disposition: Xfer Short-Term Hosp Clinical Impression: Closed fracture of left hip Qualifiers: Encounter type: initial encounter Qualified Code(s): S72.002A - Fracture of unspecified part of neck of left femur, initial encounter for closed fracture Condition: Stable Referrals: Estrella Fabian PA [Primary Care Provider] - Coding Level of Care Code ED 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
[2023-08-09 21:10] LABS: Alanine Aminotransferase 18 U/L (0-33); Albumin Level 4.2 g/dL (3.5-5.2); Alkaline Phosphatase 112 U/L (35-105); Anion Gap 18.2 (5-19); Aspartate Amino Transferase 19 U/L (0-32); Blood Urea Nitrogen 12 mg/dL (8-23); Calcium 9.5 mg/dL (8.5-10.5); Carbon Dioxide 23 mmol/L (22-29); Chloride 104 mmol/L (98-107); Creatinine Clr Calc Pharmacy 47.9919; Globulin 3.4 g/dL (1.3-4.6); Glomerular Filtration Rate 61.9 mL/min (90-130); Glucose 123 mg/dL (65-115); Osmolality Calculated 293 mOsm/kg (285-295); Potassium 4.2 mmol/L (3.5-5.1); Sodium 141 mmol/L (136-145); Total Bilirubin 0.3 mg/dL (0.15-1.2); Total Protein 7.6 g/dL (6.6-8.7)
[2023-08-09 21:28] VITALS: RESP 20; O2SAT 92
[2023-08-09] MEDS: sodium chloride 0.9% 1,000 ML 125 ML IV (21:31)
[2023-08-09 22:12] VITALS: BP 112/69; PULSE 78; RESP 20; O2SAT 93
[2023-08-10 00:55] VITALS: BP 116/71; PULSE 72; RESP 18; O2SAT 94
== END 2023-08-10 00:57 | disposition short-term general hospital (02) ==
PROVIDERS: Emergency Provider Emergency Medicine; PCP Physician Assistant
DX: S72.002A Fracture of unspecified part of neck of left femur, initial encounter for closed fracture (principal); Z77.22 Contact with and (suspected) exposure to environmental tobacco smoke (acute) (chronic); E78.5 Hyperlipidemia, unspecified; I25.10 Atherosclerotic heart disease of native coronary artery without angina pectoris; I10 Essential (primary) hypertension; W19.XXXA Unspecified fall, initial encounter
CPT/HCPCS: 51702; 71045; 73502; 80053; 85025; 85610; 93005; 96374; 96375; 96376; 99285; J2270; J2405; J7030

== ENCOUNTER → 2023-10-01 08:40 | Outpatient (BNVA) | payer MEDICARE, SELFPAY | PROVIDERS: PCP Physician Assistant; Visit Provider Internal Medicine Cardiovascular Disease | DX: I10 Essential (primary) hypertension (principal); I25.10 Atherosclerotic heart disease of native coronary artery without angina pectoris; E78.5 Hyperlipidemia, unspecified; Z95.5 Presence of coronary angioplasty implant and graft | CPT/HCPCS: 99213 ==

== ENCOUNTER 2023-12-15 13:27 | Outpatient (RCR) | payer MEDICARE, OTHER, SELFPAY | END 2023-12-25 18:00 | disposition home or self-care (01) | LOC: SPT 13:27 | PROVIDERS: PCP Physician Assistant; Visit Provider Orthopaedic Surgery Orthopaedic Trauma | DX: S72.045D Nondisplaced fracture of base of neck of left femur, subsequent encounter for closed fracture with routine healing (principal); X58.XXXD Exposure to other specified factors, subsequent encounter | CPT/HCPCS: 97110; 97161 ==

== ENCOUNTER 2023-12-26 06:21 | Outpatient (RCR) | payer MEDICARE, OTHER, SELFPAY | END 2024-01-24 23:59 | disposition home or self-care (01) | LOC: SPT 06:21 | PROVIDERS: PCP Physician Assistant; Visit Provider Orthopaedic Surgery Orthopaedic Trauma | DX: S72.045D Nondisplaced fracture of base of neck of left femur, subsequent encounter for closed fracture with routine healing (principal); X58.XXXD Exposure to other specified factors, subsequent encounter | CPT/HCPCS: 97110 ==

== ENCOUNTER 2024-01-19 09:54 | Outpatient (CLI) | payer MEDICARE, OTHER, SELFPAY ==
--- NOTE | 2024-01-19 09:59 | MM_ITS ---
WS: [id number] Bilateral screening 3D tomosynthesis digital mammogram, 01/19/2024 10:25 AM Clinical Data: SCREENING Comparison: 01/11/2023, 12/16/2020, 09/14/2018, 02/08/2013 Findings: No spiculated masses or clustered calcifications are seen. There are no secondary signs of carcinoma . The breast shows fibroglandular tissue and bilateral mole markers. MM/MM scr BI tomosynthesis [id number] Impression: Negative bilateral mammogram unchanged. Recommend annual screening mammograms. BIRADS: 1 - Negative. FOLLOW UP: 1 Year Follow-up DENSITY: The breasts are almost entirely fatty. The CAD seam checker was used
== END 2024-01-19 09:55 | disposition home or self-care (01) ==
LOC: RAD 09:55
PROVIDERS: PCP Physician Assistant; Visit Provider Physician Assistant
DX: Z12.31 Encounter for screening mammogram for malignant neoplasm of breast (principal); R92.323 Mammographic fibroglandular density, bilateral breasts
CPT/HCPCS: 77063; 77067

== ENCOUNTER 2024-01-23 18:35 | Emergency (ER) | payer MEDICARE, OTHER, SELFPAY ==
[2024-01-23 18:48] VITALS: BP 123/76; PULSE 117; RESP 16; TEMP 36.7; O2SAT 99; BMI 24.1
--- NOTE | 2024-01-23 19:09 | CTR_ITS ---
PROCEDURE INFORMATION: Exam: CT Head Without Contrast Exam date and time: 01/23/2024 7:40 PM Age: 73 years old Clinical indication: Injury or trauma; Fall; Blunt trauma (contusions or hematomas); Injury date: 01/22/2024 TECHNIQUE: Imaging protocol: Computed tomography of the head without contrast. Radiation optimization: All CT scans at this facility use at least one of these dose optimization techniques: automated exposure control; mA and/or kV adjustment per patient size (includes targeted exams where dose is matched to clinical indication); or iterative reconstruction. COMPARISON: MR angio head wo con [id number] 11/17/2021 7:48 AM RADIATION DOSE METRICS: Total DLP (mGy-cm): 1030.48 FINDINGS: Brain: Moderate nonspecific white matter low attenuation which may be related to microvascular ischemic changes. No acute confluent lobar ischemic infarct. No acute intracranial hemorrhage. Cerebral ventricles: The ventricles and sulci are prominent in size compatible with mild atrophy. Paranasal sinuses: Mild mucoperiosteal thickening is seen involving the bilateral maxillary sinuses. Mastoid air cells: Small amount of fluid is seen in the inferior right mastoid air cells. Bones: No acute calvarial fracture. Soft tissues: Visualized soft tissues are unremarkable. CT/CT head wo con* [id number] IMPRESSION: No acute intracranial abnormality. If symptoms persist, consider further evaluation with MRI, if MRI is clinically safe to obtain.
[2024-01-23 19:17] LABS: Basophils % 0.2 %; Hematocrit 48.3 % (36-47); Lymphocytes # 1.4 10^3/uL (0.8-4.8); Lymphocytes % 13.5 %; Mean Corpuscular HGB Conc 31.7 g/dL (30-55); Mean Corpuscular Hemoglobin 26.7 pg (27-33); Mean Corpuscular Volume 84.1 fl (85-98); Mean Platelet Volume 10.6 fL (7.4-10.4); Monocytes # 0.4 10^3/uL (0.2-0.9); Monocytes % 3.9 %; Neutrophils # 8.48 10^3/uL (1.8-7.7); Nucleated Red Blood Cells % 0 %; Platelet Count 442 10^3/cmm (157-399); Red Blood Count 5.74 10^6/uL (3.85-5.65); Red Cell Distribution Width 15.5 % (12.1-15.1); White Blood Count 10.34 10^3/uL (3.29-11.43)
[2024-01-23 19:36] LABS: Alanine Aminotransferase 11 U/L (0-33); Albumin Level 4.4 g/dL (3.5-5.2); Alkaline Phosphatase 127 U/L (35-105); Anion Gap 19.6 (5-19); Aspartate Amino Transferase 16 U/L (0-32); Blood Urea Nitrogen 11 mg/dL (8-23); Calcium 9.5 mg/dL (8.5-10.5); Carbon Dioxide 24 mmol/L (22-29); Chloride 96 mmol/L (98-107); Creatinine Clr Calc Pharmacy 46.9779; Globulin 4.1 g/dL (1.3-4.6); Glucose 186 mg/dL (65-115); Lipase 31 U/L (13-60); Osmolality Calculated 286 mOsm/kg (285-295); Potassium 3.6 mmol/L (3.5-5.1); Sodium 136 mmol/L (136-145); Total Bilirubin 0.7 mg/dL (0.15-1.2); Total Protein 8.5 g/dL (6.6-8.7)
[2024-01-23 19:53] VITALS: BP 164/107; PULSE 97; RESP 16; O2SAT 98
[2024-01-23 20:02] LABS: Bilirubin Urine Negative (Negative); Blood Urine 3+ (Negative); Glucose Urine UA Trace (Normal); Ketones Urine 1+ (Negative); Leukocyte Esterase Urine 2+ (Negative); Nitrate Urine Negative (Negative); Protein Urine 3+ (Negative); Specific Gravity, Urine 1.022 (1.005-1.030); Urine Appearance Turbid (CLEAR); Urine Color Dark Yellow (Yellow)
--- NOTE | 2024-01-23 20:06 | ED_ITS ---
HPI - Head Injury 2 General: Chief complaint: Head Injury Stated complaint: vomiting Time Seen by Provider: 01/23/24 19:28 Source: patient Mode of arrival: ambulatory Limitations: no limitations History of Present Illness: 73-year-old female states that she had t ripped and fell yesterday she states she hit her head on the ground. She states that she had a loss of consciousness she believes it lasted for seconds. She states that since then she has been having a headache along with some vomiting. Denies any neck pain denies any other injuries in the fall Associated symptoms: Reports nausea and vomiting; Deny neck pain Related Data Home Medications Medication Instructions Recorded Confirmed levocetirizine 5 mg tablet 5 mg PO BID 07/10/19 10/01/23 levothyroxine 125 mcg tablet 88 mcg PO DAILY 03/06/22 10/01/23 atorvastatin 40 mg tablet 40 mg PO DAILY 09/04/22 10/01/23 pantoprazole 40 mg tablet,delayed 40 mg PO DAILY 03/29/23 10/01/23 release Previous Rx's Medication Instructions Recorded nitroglycerin 0.4 mg sublingual 0.4 mg sublingual Q5M PRN chest 01/24/21 tablet pain #25 tabs clopidogrel 75 mg tablet 75 mg PO DAILY #90 tabs 07/21/21 famotidine 20 mg tablet See Rx Instructions .Route 10/14/23 .COMPLEX #180 tabs cephalexin 500 mg capsule 500 mg PO TID 7 days #21 caps 01/23/24 ondansetron 4 mg disintegrating 4 mg PO Q6H PRN nausea and 01/23/24 tablet vomiting #14 tabs Allergies Allergy/AdvReac Type Severity Reaction Status Date / Time Beef Containing Products Allergy Unknown Unknown Verified 10/01/23 08:57 Pork/Porcine Containing Allergy Unknown Unknown Verified 10/01/23 08:57 Products Alpha-Gal Allergy ALGY-Rash Verified 10/01/23 08:57 ([id number]-9,3-Gala tetanus toxoid, adsorbed Allergy facial Verified 10/01/23 08:57 swelling Review of Systems 2 Const: Denies: fever(s), chills, body aches or change in appetite Eyes: Denies: blurry vision or eye discomfort ENMT: Denies: throat pain or dental pain Card: Denies: chest pain Resp: Denies: dyspnea GI: Reports: nausea and vomiting; Denies: abdominal pain or diarrhea Musc: Denies: neck pain or back pain Skin/Breast: Denies: rash Neuro: Reports: headache(s) PFSH ED 2 PFSH: Medical History Presence of stent in LAD coronary artery Rheumatoid arthritis Barretts esophagus GERD (gastroesophageal reflux disease) Dyslipidemia CAD (coronary artery disease) HTN (hypertension) Family History Father CAD (coronary artery disease) Family history of premature coronary artery disease Hypertension Mother CAD (coronary artery disease) Grandfather CAD (coronary artery disease) Family/Other Cancer Diabetes Suicide Sister Diabetes Denies family history of Clotting disorder Dementia Hyperlipidemia Psychiatric illness Chronic kidney disease (CKD) Anesthesia complication Bleeding disorder Lung disease Stroke Social History Smoking and tobacco/nicotine status: never used tobacco/nicotine Second hand smoke exposure: Yes Alcohol intake: never Substance/Drug Use: never Physical Exam 2 Const: COMMON NORMALS: no acute distress, patient oriented x3 and healthy appearing HENMT: COMMON NORMALS: normocephalic and atraumatic HEAD & SCALP: n ormocephalic and atraumatic Eye: COMMON NORMALS: Equal, round and reactive pupils present and EOMs intact bilaterally PUPIL: Yes Equal, round and reactive pupils present Neck/C-Spine: COMMON NORMALS: full ROM and supple CERVICAL SPINE: Yes cervical ROM normal and No Cervical spine tenderness Chest: COMMONS NORMALS: normal inspection of the chest Resp: COMMON NORMALS: normal respiratory effort Cardio: COMMON NORMALS: regular rate, regular rhythm and No murmurs present (Cardio) RATE: regular rate RHYTHM: regular rhythm Extremity: COMMON NORMALS: normal to inspection and full ROM Neuro: COMMON NORMALS: patient oriented x3, moves all extremities and no focal motor deficits Psych: COMMON NORMALS: mental status grossly normal, Normal thought process present and cooperative THOUGHT PROCESS: Normal thought process present Skin: COMMON NORMALS: no rashes or lesions noted and no wounds GENERAL SKIN EXAM: no rashes or lesions noted Course 2 Vital Signs: Vital signs: Vital Signs Temperature 98.1 F 01/23/24 18:48 Pulse Rate 92 01/23/24 20:33 Respiratory Rate 16 01/23/24 20:33 Blood Pressure 123/100 01/23/24 20:33 Pulse Oximetry 97 01/23/24 20:33 Oxygen Delivery Me thod Room Air 01/23/24 19:53 MDM - Head Injury Medcial Decision Making Patient presents here with a closed head injury from a fall head CT here is negative her headache has improved. She also has a UTI I we will prescribe her nausea medicine along with antibiotics she is to return if worsening she understands agrees to plan Medical Records I reviewed the patient's medical records. Lab Data I reviewed the patient's lab results. 01/23/24 19:03 01/23/24 19:[address] 01/23/24 19:09 IMPRESSION: No acute intracranial abnormality. If symptoms persist, consider further evaluation with MRI, if MRI is clinically safe to obtain. Laboratory Results WBC 10.34 10^3/uL (3.29-11.43) 01/23/24 19:03 RBC 5.74 10^6/uL (3.85-5.65) H 01/23/24 19:03 Hgb 15.30 g/dL (11.27-16.99) 01/23/24 19:03 Hct 48.3 % (36-47) H 01/23/24 19:03 MCV 84.1 fl (85-98) L 01/23/24 19:03 MCH 26.7 pg (27-33) L 01/23/24 19:03 MCHC 31.7 g/dL (30-55) 01/23/24 19:03 RDW 15.5 % (12.1-15.1) H 01/23/24 19:03 Plt Count 442 10^3/cmm (157-399) H 01/23/24 19:03 MPV 10.6 fL (7.4-10.4) H 01/23/24 19:03 Neut % (Auto) 82.0 % 01/23/24 19:03 Lymph % (Auto) 13.5 % 01/23/24 19:03 Bacon % (Auto) 3.9 % 01/23/24 19:03 Eos % (Auto) 0.0 % 01/23/24 19:03 Baso % (Auto) 0.2 % 01/23/24 19:03 Neut # (Auto) 8.48 10^3/uL (1.8-7.7) H 01/23/24 19:03 Lymph # (Auto) 1.4 10^3/uL (0.8-4.8) 01/23/24 19:03 Bacon # (Auto) 0.4 10^3/uL (0.2-0.9) 01/23/24 19:03 Eos # (Auto) 0.0 10^3/uL (0.0-0.8) 01/23/24 19:03 Baso # (Auto) 0.0 10^3/uL (0.0-0.1) 01/23/24 19:03 Nucleated RBC % (auto) 0 % 01/23/24 19:03 Nucleated RBCs # 0.0 /100WBC 01/23/24 19:03 Sodium 136 mmol/L (136-145) 01/23/24 19:03 Potassium 3.6 mmol/L (3.5-5.1) 01/23/24 19:03 Chloride 96 mmol/L (98-107) L 01/23/24 19:03 Carbon Dioxide 24 mmol/L (22-29) 01/23/24 19:03 Anion Gap 19.6 (5-19) H 01/23/24 19:03 BUN 11 mg/dL (8-23) 01/23/24 19:03 Creatinine 0.9 mg/dL (0.5-0.9) 01/23/24 19:03 GFR Calculation Not Reportable 01/23/24 19:03 Glucose 186 mg/dL (65-115) H 01/23/24 19:03 Calculated Osmolality 286 mOsm/kg (285-295) 01/23/24 19:03 Calcium 9.5 mg/dL (8.5-10.5) 01/23/24 19:03 Total Bilirubin 0.7 mg/dL (0.15-1.2) 01/23/24 19:03 AST 16 U/L (0-32) 01/23/24 19:03 ALT 11 U/L (0-33) 01/23/24 19:03 Alkaline Phosphatase 127 U/L (35-105) H 01/23/24 19:03 Total Protein 8.5 g/dL (6.6-8.7) 01/23/24 19:03 Albumin 4.4 g/dL (3.5-5.2) 01/23/24 19:03 Globulin 4.1 g/dL (1.3-4.6) 01/23/24 19:03 Lipase 31 U/L (13-60) 01/23/24 19:03 Urine Color Dark yellow (Yellow) A 01/23/24 19:45 Urine Appearance Turbid (CLEAR) A 01/23/24 19:45 Urine pH 6.0 (5-7) 01/23/24 19:45 Ur Specific [place] 1.022 (1.005-1.030) 01/23/24 19:45 Urine Protein 3+ (Negative) A 01/23/24 19:45 Urine Glucose (UA) Trace (Normal) H 01/23/24 19:45 Urine Ketones 1+ (Negative) H 01/23/24 19:45 Urine Blood 3+ (Negative) A 01/23/24 19:45 Urine Nitrate Negative (Negative) 01/23/24 19:45 Urine Bilirubin Negative (Negative) 01/23/24 19:45 Urine Urobilinogen 1.0 mg/dL (Negative) 01/23/24 19:45 Ur Leukocyte Esterase 2+ (Negative) A 01/23/24 19:45 Urine RBC 21-50 /hpf (0-2) H 01/23/24 19:45 Urine WBC >100 /hpf (0-5) H 01/23/24 19:45 Ur Squamous Epith Cells 21-50 /hpf (0-5) 01/23/24 19:45 Amorphous Sediment Not Reportable 01/23/24 19:45 Urine Bacteria 4+ /hpf (NONE) H 01/23/24 19:45 Hyaline Casts 32.71 /lpf 01/23/24 19:45 All radiology interpretation(s) finalized by discharge Discharge Plan Discharge Patient Disposition: Home Clinical Impression: Closed head injury, Acute UTI Condition: Stable Prescriptions: New cephalexin 500 mg capsule 500 mg PO TID 7 Days Qty: 21 0RF ondansetron 4 mg tablet,disintegrating 4 mg PO Q6H PRN (Reason: nausea and vomiting) Qty: 14 0RF No Action levocetirizine 5 mg tablet 5 mg PO BID nitroglycerin 0.4 mg tablet, sublingual 0.4 mg sublingual Q5M PRN (Reason: chest pain) Qty: 25 2RF Rx Instructions: do not exceed 3 doses per episode atorvastatin 40 mg tablet 40 mg PO DAILY pantoprazole 40 mg tablet,delayed release (DR/EC) 40 mg PO DAILY clopidogrel 75 mg tablet 75 mg PO DAILY Qty: 90 3RF famotidine 20 mg tablet See Rx Instructions .ROUTE .COMPLEX Qty: 180 3RF Dose Instruction: TAKE 1 TABLET BY MOUTH TWICE DAILY Rx Instructions: TAKE 1 TABLET BY MOUTH TWICE DAILY levothyroxine 125 mcg tablet 88 mcg PO DAILY Discharge Orders: Discharge ED (Routine); Ordered 01/23/24 Ordered By: Anthony Garcia Referrals: Estrella Fabian PA [Primary Care Provider] - Discharge Diet: Advance as tolerated Discharge Activity: Resume usual activity Patient Instructions: Urinary Tract Infection in Men (ED), Head Injury (ED) Coding Level of Care Code ED 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
[2024-01-23 20:07] LABS: Add Urine Microscopic? YES; Bacteria Urine 4+ /hpf; Hyaline Casts Urine 32.71 /lpf; RBC Urine 21-50 /hpf (0-2); Squamous Epithelial Cell Urine 21-50 /hpf (0-5); Universal Test for UA Present (0); WBC Urine >100 /hpf (0-5)
[2024-01-23 20:19] LABS: Add Urine Culture? No
[2024-01-23 20:25] VITALS: RESP 16
[2024-01-23] MEDS: morphine 4 mg/mL SDV 1 mL IVP (20:25)
[2024-01-23] MEDS: ondansetron 2 mg/ML SDV 2 mL 4 MG IVP (20:25)
[2024-01-23] MEDS: cefTRIAXone 1,000 mg SDV 1000 MG IVP (20:31)
[2024-01-23 20:33] VITALS: BP 123/100; PULSE 92; RESP 16; O2SAT 97
[2024-01-23 21:21] VITALS: BP 117/80; PULSE 87; O2SAT 97
== END 2024-01-23 21:22 | disposition home or self-care (01) ==
PROVIDERS: Emergency Provider Emergency Medicine; PCP Physician Assistant
DX: N39.0 Urinary tract infection, site not specified (principal); S09.8XXA Other specified injuries of head, initial encounter; Z77.22 Contact with and (suspected) exposure to environmental tobacco smoke (acute) (chronic); E78.5 Hyperlipidemia, unspecified; I25.10 Atherosclerotic heart disease of native coronary artery without angina pectoris; I10 Essential (primary) hypertension; W01.0XXA Fall on same level from slipping, tripping and stumbling without subsequent striking against object, initial encounter; Z79.02 Long term (current) use of antithrombotics/antiplatelets
CPT/HCPCS: 36415; 70450; 80053; 81001; 83690; 85025; 96374; 96375; 99285; J0696; J2270; J2405

== ENCOUNTER 2024-01-25 06:30 | Outpatient (RCR) | payer MEDICARE, OTHER, SELFPAY | END 2024-02-24 23:59 | disposition home or self-care (01) | LOC: SPT 06:30 | PROVIDERS: Visit Provider Orthopaedic Surgery Orthopaedic Trauma | DX: S72.045D Nondisplaced fracture of base of neck of left femur, subsequent encounter for closed fracture with routine healing (principal); X58.XXXD Exposure to other specified factors, subsequent encounter | CPT/HCPCS: 97110; 97530 ==

== ENCOUNTER 2024-02-14 13:45 | Outpatient (CLI) | payer MEDICARE, OTHER, SELFPAY ==
--- NOTE | 2024-02-14 13:50 | MR_ITS ---
WS: [id number] MRI BRAIN WITHOUT CONTRAST HISTORY: ATAXIC GAIT COMPARISON: CT head 01/23/2024 TECHNIQUE: Diffusion imaging, multiplanar T1, T2 and FLAIR imaging obtained. No evidence for acute infarct or hemorrhage. Odell-white matter differentiation is normal. Mild atrophy. Moderate patchy T2 and FLAIR signal hyperintensities in the periventricular and subcort ical white matter distribution. No prior infarct. Mild cerebellar atrophy. Mild ventriculomegaly on the basis of atrophy. No inferior displacement of cerebellar tonsils. The sella turcica and pituitary gland are unremarkabl e. Dural venous sinuses and [place] of [place] demonstrate no abnormality on this unenhanced studies. Paranasal sinuses: Small air-fluid level LEFT maxillary sinus. Mastoid air cells: Normal. Calvarium and scalp: Intact. MR/MR head wo con* [id number] IMPRESSION: 1. No acute infarct. No acute hemorrhage. 2. Moderate small vessel ischemic disease. Mild cerebral atrophy. 3. No intracranial hemorrhage.
== END 2024-02-14 13:46 | disposition home or self-care (01) ==
LOC: RAD 13:46
PROVIDERS: PCP Physician Assistant; Visit Provider Physician Assistant
DX: I67.82 Cerebral ischemia (principal); R26.0 Ataxic gait
CPT/HCPCS: 70551

== ENCOUNTER 2024-02-25 06:00 | Outpatient (RCR) | payer MEDICARE, OTHER, SELFPAY | END 2024-03-25 23:59 | disposition home or self-care (01) | LOC: SPT 06:00 | PROVIDERS: Visit Provider Orthopaedic Surgery Orthopaedic Trauma | DX: S72.045D Nondisplaced fracture of base of neck of left femur, subsequent encounter for closed fracture with routine healing (principal); X58.XXXD Exposure to other specified factors, subsequent encounter | CPT/HCPCS: 97110 ==

== ENCOUNTER 2024-03-08 07:23 | Outpatient (CLI) | payer MEDICARE, OTHER, SELFPAY ==
--- NOTE | 2024-03-08 07:28 | CT_ITS ---
WS: [id number] CT LEFT HIP, NONCONTRAST HISTORY: TROCHANTERIC BURSISTIS OF L HIP/CLOSED FX OF L FEMUR Technique: All CT scans at [facility] use at least one of these dose optimization techniques: automated exposure control; mA and/or kV adjustment per patient size (includes targeted exams where dose is matched to clinical indication); or iterative reconstruction. DLP: 271.02 mGy.cm COMPARISON: 02/16/2021 Status post ORIF with fixation hardware at the LEFT hip extending into the proximal femur. No adverse position of the hardware. There is no lucency surrounding the screws. No acute fracture. No prior po stoperative radiographs to evaluate for any subtle change in position of the hardware. Increased attenuation and infiltration in the soft tissues along the medial posterior pelvis. This is closely associated with the level of the LEFT greater trochanter and extending inferior. There is no obvious tract or fluid collection. This could be a potential developing decubitus ulcer. No adenopat hy. CT/CT hip LT wo con* [id number] IMPRESSION: 1. Status post ORIF LEFT hip fracture. No complications are apparent radiograp hically. 2. Increased soft tissue opacification in the posterior medial LEFT pelvis con tinues towards the ischial tuberosity. This could represent a developing decubi tus ulcer. At this time there is no abscess or focal collection. Differential w ould include hematoma or soft tissue contusion.
== END 2024-03-08 07:24 | disposition home or self-care (01) ==
PROVIDERS: PCP Physician Assistant; Visit Provider Orthopaedic Surgery Orthopaedic Trauma
DX: M70.62 Trochanteric bursitis, left hip (principal); S72.045D Nondisplaced fracture of base of neck of left femur, subsequent encounter for closed fracture with routine healing; M76.32 Iliotibial band syndrome, left leg; Y99.9 Unspecified external cause status; Z96.642 Presence of left artificial hip joint; Y93.9 Activity, unspecified
CPT/HCPCS: 73700

== ENCOUNTER → 2024-04-17 13:23 | Outpatient (BNVA) | payer MEDICARE, OTHER, SELFPAY | PROVIDERS: PCP Physician Assistant; Visit Provider Internal Medicine | DX: I25.10 Atherosclerotic heart disease of native coronary artery without angina pectoris (principal); I10 Essential (primary) hypertension; Z95.5 Presence of coronary angioplasty implant and graft; E78.5 Hyperlipidemia, unspecified | CPT/HCPCS: 99214 ==

== ENCOUNTER 2024-10-05 17:19 | Emergency (ER) | payer MEDICARE, OTHER, SELFPAY ==
[2024-10-05 17:29] VITALS: BP 126/90; PULSE 66; RESP 18; TEMP 36.4; O2SAT 99
--- NOTE | 2024-10-05 19:20 | XRR_ITS ---
PROCEDURE INFORMATION: Exam: XR Left Ankle Exam date and time: 10/05/2024 7:21 PM Age: 74 years old Clinical indication: Injury or trauma; Fall; Blunt trauma; Ankle; Left; Additional info: Fall, pain TECHNIQUE: Imaging protocol: Radiologic exam of the left ankle. Views: 3 or more views. COMPARISON: CR XR knee LT 3V* [id number] 01/18/2020 8:58 AM FINDINGS: Bones/joints: Subtle linear lucency extending through the inferior tip of the lateral malleolus seen on only one view may represent artifact but a nondisplaced avulsion fracture can not be excluded. Correlate with point tenderness. There is a crescentic 5 mm bony density just inferior to the medial malleolus which may represent an avulsion injury. Soft tissues: Soft tissue swelling about the ankle. XR/XR ankle LT min 3V* [id number] IMPRESSION: 1. Soft tissue swelling about the ankle. 2. Subtle linear lucency extending through the inferior tip of the lateral malleolus seen on only one view may represent artifact but a nondisplaced avulsion fracture can not be excluded. Correlate with point tenderness. 3. There is a crescentic 5 mm bony density just inferior to the medial malleolus which may represent an avulsion injury.
--- NOTE | 2024-10-05 19:22 | CTR_ITS ---
PROCEDURE INFORMATION: Exam: CT Head Without Contrast Exam date and time: 10/05/2024 7:34 PM Age: 74 years old Clinical indication: Injury or trauma; Fall; Blunt trauma (contusions or hematomas); With loss of consciousness; Loss of consciousness for 30 minutes or less; Additional info: Fall, head injury TECHNIQUE: Imaging protocol: Computed tomography of the head without contrast. Radiation optimization: All CT scans at this facility use at least one of these dose optimization techniques: automated exposure control; mA and/or kV adjustment per patient size (includes targeted exams where dose is matched to clinical indication); or iterative reconstruction. COMPARISON: MR head wo con* [id number] 02/14/2024 2:06 PM RADIATION DOSE METRICS: Total DLP (mGy-cm): 1009.4 FINDINGS: Brain: No hemorrhage. No edema, mass effect or midline shift. Periventricular and deep white matter hypodensities compatible with chronic microvascular ischemic changes. Cerebral ventricles: No ventriculomegaly. Paranasal sinuses: Visualized sinuses are unremarkable. No fluid levels. Mastoid air cells: No mastoid effusion. Bones: Unremarkable. No acute fracture. Soft tissues: Unremarkable. CT/CT head wo con* [id number] IMPRESSION: No acute intracranial abnormality.
--- NOTE | 2024-10-05 19:22 | CTR_ITS ---
PROCEDURE INFORMATION: Exam: CT Chest Without Contrast; Diagnostic Exam date and time: 10/05/2024 7:34 PM Age: 74 years old Clinical indication: Injury or trauma; Fall; Blunt trauma (contusions or hematomas); Additional info: Traumatic chest pain TECHNIQUE: Imaging protocol: Diagnostic computed tomography of the chest without contrast. Radiation optimization: All CT scans at this facility use at least one of these dose optimization techniques: automated exposure control; mA and/or kV adjustment per patient size (includes targeted exams where dose is matched to clinical indication); or iterative reconstruction. COMPARISON: CT angio abdomen pelvis [id number] 02/16/2021 12:30 PM RADIATION DOSE METRICS: Total DLP (mGy-cm): 331.6 FINDINGS: Lungs: Unremarkable. No consolidation. No masses. Pleural spaces: Unremarkable. No pneumothorax. No pleural effusion. Heart: Unremarkable. No cardiomegaly. No pericardial effusion. Coronary arteries: Coronary arterial atherosclerotic calcifications are present. Lymph nodes: Unremarkable. No enlarged lymph nodes. Vasculature: Unremarkable. No aortic aneurysm. Diaphragm: Moderate size hiatal hernia redemonstrated. Gallbladder and biliary ducts: The gallbladder is absent. Bones/joints: Unremarkable. No acute fracture. Soft tissues: Unremarkable. CT/CT chest [facility] [id number] IMPRESSION: 1. No focal consolidation, pleural effusion or pneumothorax. 2. No traumatic injury to the thoracic aorta. 3. No fracture identified.
--- NOTE | 2024-10-05 19:27 | ED_ITS ---
HPI - Fall General: Chief Complaint: Fall Stated Complaint: left ankle injury from fall Time Seen by Provider: 10/05/24 19:20 History of Present Illness: 74-year-old female with a history of cor onary artery disease status post stents on Plavix, hyperlipidemia, GERD and hypertension who presents to the emergency room after having had a fall. She tripped and fell down the stairs. She has pain in her left ankle with some swelling and no obvious deformity. She has some left-sided lateral rib pain and she hit her head and think she may have lost consciousness briefly. Currently no altered mental status. No nausea or vomiting. No headache. No focal motor deficits. No increased work of breathing. No oxygen requirements. Related Data Home Medications ?Medication ?Instructions ?Recorded ?Confirmed levocetirizine 5 mg tablet 5 mg PO BID 07/10/19 levothyroxine 125 mcg tablet 88 mcg PO DAILY 03/06/22 04/17/24 atorvastatin 40 mg tablet 40 mg PO DAILY 09/04/2203/27 pantoprazole 40 mg tablet,delayed 40 mg PO DAILY 03/2904/17/24 release Previous Rx's ?Medication ?Instructions ?Recorded nitroglycerin 0.4 mg sublingual 0.4 mg sublingual Q5M PRN chest 01/24/21 tablet pain #25 tabs clopidogrel 75 mg tablet 75 mg PO DAILY #90 tabs 06/25 12/15 famotidine 20 mg tablet See Rx Instructions .Route 0 10/14/23 .COMPLEX #180 tabs ondansetron 4 mg disintegrating 4 mg PO Q6H PRN nausea and 01/23/24 tablet vomiting #14 tabs Allergies Allergy/AdvReac Type Severity Reaction Status Date / Time Beef Containing Products Allergy Unknown Unknown Verified 10/05/24 17:36 Pork/Porcine Containing Allergy Unknown Unknown Verified 10/05/24 17:36 Products Alpha-Gal Allergy ALGY-Rash Verified 10/05/24 17:36 (Tdstihtba-Ihfeg-1,3-Gala tetanus toxoid, adsorbed Allergy facial Verified 10/05/24 17:36 swelling Review of Systems Narrative: Constitutional symptoms: Negative except as documented in HPI. Skin symptoms: Negative except as documented in HPI. Eye symptoms: Negative except as documented in HPI. ENMT symptoms: Negative except as documented in HPI. Respiratory symptoms: Negative except as documented in HPI. Cardiovascular symptoms: Negative except as documented in HPI. Gastrointestinal symptoms: Negative except as documented in HPI. Genitourinary symptoms: Negative except as documented in HPI. Musculoskeletal symptoms: Negative except as documented in HPI. Neurologic symptoms: Negative except as documented in HPI. Psychiatric symptoms: Negative except as documented in HPI. Endocrine symptoms: Negative except as documented in HPI. PFSH ED PFSH: Medical History Presence of stent in LAD coronary artery Rheumatoid arthritis Barretts esophagus GERD (gastroesophageal reflux disease) Dyslipidemia CAD (coronary artery disease) HTN (hypertension) Family History Father CAD (coronary artery disease) Family history of premature coronary artery disease Hypertension Mother CAD (coronary artery disease) Grandfather CAD (coronary artery disease) Family/Other Cancer Diabetes Suicide Sister Diabetes Denies family history of Clotting disorder Dementia Hyperlipidemia Psychiatric illness Chronic kidney disease (CKD) Anesthesia complication Bleeding disorder Lung disease Stroke Social History Smoking and tobacco/nicotine status: never used tobacco/nicotine Second hand smoke exposure: Yes Alcohol intake: never Substance/Drug Use: never Physical Exam Narrative: EXAM NARRATIVE: General: Alert, no acute distress. Skin: Warm, dry. Head: Normocephalic, atraumatic. Neck: Supple, trachea midline. Eye: Extraocular movements are intact. Ears, nose, mouth and throat: mucosa moist. Cardiovascular: Regular, Normal peripheral perfusion. Respiratory: Lungs are clear to auscultation, respirations are non-labored, breath sounds are equal, Symmetrical chest wall expansion. Tenderness to p alpation of the left ribs. Gastrointestinal: Soft, Nontender, Non distended Musculoskeletal: Swelling and tenderness of the ankle bilaterally. No obvious deformity. Neurovascularly intact. Neurological: Alert and oriented, No focal neurological deficit observed. Psychiatric: Cooperative, appropriate mood & affect. Course Vital Signs: Vital signs: Vital Signs Temperature 97.6 F 10/05/24 17:29 Pulse Rate 66 10/05/24 17:29 Respiratory Rate 18 10/05/24 17:29 Blood Pressure 126/90 10/05/24 17:29 Pulse Oximetry 99 10/05/24 17:29 MDM - Fall Medical Decision Making Medical decision making: Differential diagnosis including but not limited to and based on the above HPI, review of systems and physical exam: patient with fall and head injury. Subdural hematoma, subarachnoid hemorrhage, concussion, skull fracture. Orders placed to evaluate differential diagnosis based on the above differential, HPI and physical exam CT scan of the head was ordered. CT head: No acute intracranial process. no intracranial hemorrhage, no evidence of infarct. no evidence of acute fracture.This was reviewed and interpreted by myself the ER physician. CT of the chest without contrast: No rib fractures. No pleural effusions or pneumothorax. No consolidations. This was reviewed and interpreted by myself the emergency room physician. I also reviewed the radiology report. Ankle x-ray: Soft tissue swelling. Possibly a very small nondisplaced avulsion fracture on the lateral malleolus. Discussed this with patient and she will follow-up for repeat x-rays with orthopedics I reviewed the patient's medical record. Assessment and plan: Fall Head injury Rib contusion Ankle sprain ? Ultram in the emergency room. She declines any further pain medication for home. - Discharged home - Discussed plan with patient. Answered any questions. - Evaluation and treatment of this problem were appropriate in the emergency setting. Lab Data Radiology Impressions Ankle X-Ray 10/05/24 19:20 IMPRESSION: 1. Soft tissue swelling about the ankle. 2. Subtle linear lucency extending through the inferior tip of the lateral malleolus seen on only one view may represent artifact but a nondisplaced avulsion fracture can not be excluded. Correlate with point tenderness. 3. There is a crescentic 5 mm bony density just inferior to the medial malleolus which may represent an avulsion injury. Chest CT 10/05/24 19:22 IMPRESSION: 1. No focal consolidation, pleural effusion or pneumothorax. 2. No traumatic injury to the thoracic aorta. 3. No fracture identified. Head CT 10/05/24 19:22 IMPRESSION: No acute intracranial abnormality. All radiology interpretation(s) finalized by discharge Discharge Plan Discharge Patient Disposition: Home Clinical Impression: Fall, Head injury, Contusion of rib, Ankle strain Condition: Stable Prescriptions: No Action levocetirizine 5 mg tablet 5 mg PO BID nitroglycerin 0.4 mg tablet, sublingual 0.4 mg sublingual Q5M PRN (Reason: chest pain) Qty: 25 2RF Rx Instructions: do not exceed 3 doses per episode atorvastatin 40 mg tablet 40 mg PO DAILY pantoprazole 40 mg tablet,delayed release (DR/EC) 40 mg PO DAILY clopidogrel 75 mg tablet 75 mg PO DAILY Qty: 90 3RF famotidine 20 mg tablet See Rx Instructions .ROUTE .COMPLEX Qty: 180 3RF Dose Instruction: TAKE 1 TABLET BY MOUTH TWICE DAILY Rx Instructions: TAKE 1 TABLET BY MOUTH TWICE DAILY levothyroxine 125 mcg tablet 88 mcg PO DAILY ondansetron 4 mg tablet,disintegrating 4 mg PO Q6H PRN (Reason: nausea and vomiting) Qty: 14 0RF Discharge Orders: Discharge ED (Routine); Ordered 10/05/24 Ordered By: Zamzam Carlos Referrals: Alexandria Del Toro MD [Physician, Orthopedics] - 4-7 days Referral Note: Please follow-up with Dr. Del Toro or with orthopedic doctor of your choosing if pain and swelling do not resolve in the next few days. Estrella Fabian PA [Primary Care Provider, Physicians Bail Bond Agent] Discharge Diet: Usual diet Discharge Activity: Increase activity as tolerated Patient Instructions: Fall Prevention (ED), Opioid Safety, Pain Management Activity Restrictions/Additional Instructions: Thank you for choosing [facility] for your healthcare needs today. You have been screened and evaluated and felt safe for discharge. Health conditions do change or evolve sometimes and as such it is important that you follow up with your Primary Doctor to be re checked, 3-5 days is a general good time frame for follow up. You are always welcome to return to the ED for re assessment if your symptoms are worsening or you have new concerns Print Language: Guatemalan Coding Level of Care Code ED Senior Master Scheduler for Liana Dallas
[2024-10-05 19:36] VITALS: BP 157/98; PULSE 68; O2SAT 100
--- NOTE | 2024-10-05 19:37 | ECG_ITS ---
[facility] Test Date: 2024-10-05 Pat Name: Jihan Sears Department: Room: Gender: Female Examining Officer: : 1950 Requested By: Zamzam Cespedes Order Number: [id number] Khoury MD: Nasir Rasmussen M.D. Measurements Intervals [place] Rate: 67 P: 49 CT: 163 QRS: -15 QRSD: 97 T: 14 QT: 392 QTc: 414 Interpretive Statements SINUS RHYTHM POSSIBLE ANTERIOR MYOCARDIAL INFARCTION , PROBABLY OLD [30 ms Q WAVE IN V3/V4, OR R < 0.2 mV IN V4] Compared to ECG 08/09/2023 19:35:59 T-wave abnormality no longer present Myocardial infarct finding still present Electronically Signed On 10-06-2024 14:51:35 CDT by Nasir Rasmussen M.D. [email or web address] [id number]
[2024-10-05] MEDS: TRAMadol 50 mg Tablet PO (20:31)
[2024-10-05 20:48] VITALS: BP 142/70; PULSE 71; O2SAT 98
== END 2024-10-05 20:45 | disposition home or self-care (01) ==
PROVIDERS: Emergency Provider Emergency Medicine; PCP Physician Assistant
DX: S09.90XA Unspecified injury of head, initial encounter (principal); S93.402A Sprain of unspecified ligament of left ankle, initial encounter; S20.219A Contusion of unspecified front wall of thorax, initial encounter; I25.10 Atherosclerotic heart disease of native coronary artery without angina pectoris; E78.5 Hyperlipidemia, unspecified; K21.9 Gastro-esophageal reflux disease without esophagitis; I10 Essential (primary) hypertension; Z95.5 Presence of coronary angioplasty implant and graft; Z79.02 Long term (current) use of antithrombotics/antiplatelets; W10.9XXA Fall (on) (from) unspecified stairs and steps, initial encounter; Z79.899 Other long term (current) drug therapy; Z79.890 Hormone replacement therapy
CPT/HCPCS: 70450; 71250; 73610; 93005; 99284; J9999

== ENCOUNTER 2024-10-24 06:30 | Outpatient (RCR) | payer MEDICARE, OTHER, SELFPAY | END 2024-11-23 23:59 | disposition home or self-care (01) | LOC: SPT 06:30 | PROVIDERS: Visit Provider Physician Assistant | DX: M62.81 Muscle weakness (generalized) (principal); R26.89 Other abnormalities of gait and mobility; R42 Dizziness and giddiness | CPT/HCPCS: 95992; 97110; 97161 ==

== ENCOUNTER 2024-11-24 06:30 | Outpatient (RCR) | payer MEDICARE, OTHER, SELFPAY | END 2024-12-24 23:59 | disposition home or self-care (01) | LOC: SPT 06:30 | PROVIDERS: Visit Provider Physician Assistant | DX: M62.81 Muscle weakness (generalized) (principal); R26.89 Other abnormalities of gait and mobility; R42 Dizziness and giddiness | CPT/HCPCS: 97110; 97112 ==

== ENCOUNTER 2024-12-25 05:00 | Outpatient (RCR) | payer MEDICARE, OTHER, SELFPAY | END 2025-01-23 23:59 | disposition home or self-care (01) | LOC: SPT 05:00 | PROVIDERS: Visit Provider Physician Assistant | DX: M62.81 Muscle weakness (generalized) (principal) | CPT/HCPCS: 97110 ==

== ENCOUNTER → 2025-01-15 14:18 | Outpatient (BNVA) | payer MEDICARE, OTHER, SELFPAY | PROVIDERS: PCP Physician Assistant; Visit Provider Internal Medicine | DX: I25.10 Atherosclerotic heart disease of native coronary artery without angina pectoris (principal); I10 Essential (primary) hypertension; Z95.5 Presence of coronary angioplasty implant and graft; E78.5 Hyperlipidemia, unspecified | CPT/HCPCS: 99214 ==

== ENCOUNTER → 2025-01-25 13:26 | Outpatient (BNVA) | payer MEDICARE, OTHER, SELFPAY | PROVIDERS: PCP Physician Assistant; Visit Provider Internal Medicine | DX: I25.110 Atherosclerotic heart disease of native coronary artery with unstable angina pectoris (principal); I10 Essential (primary) hypertension; Z95.5 Presence of coronary angioplasty implant and graft; E78.5 Hyperlipidemia, unspecified | CPT/HCPCS: 99214 ==

== ENCOUNTER 2025-02-02 07:17 | Outpatient (CLI) | payer MEDICARE, OTHER, SELFPAY ==
[2025-02-02] VITALS (17 sets, daily range): BP systolic 108–152; BP diastolic 69–88; PULSE 56–71; RESP 11–20; TEMP 36.4–36.6; O2SAT 89–99; BMI 26.2
--- NOTE | 2025-02-02 07:30 | XACV_ITS ---
Exam Room: 2 Ht: 155 cm Wt: 63 kg BSA: 1.66 m2 Gender: Female : 1950 Any Known Allergies: Other Exam Priority: Routine Procedure(s): Procedure Description: Diagnostic procedure Procedure Description: Left Heart Catheterization Procedure Description: Left ventriculography Procedure Description: Coronary Angiography Diagnostic Cath Status: Elective Diagnostic Findings * INDICATION: Worsening angina. * Left Main has no significant disease. * Left Anterior Descending has patent prior stent. Mild luminal irregularities. * Right Coronary Artery has mild luminal irregularities. * Proximal Circumflex to Mid Circumflex: luminal irregularities 20% stenosis, DEEPIKA: 3 flow. * Coronary angiography shows right dominance. Conclusions 1. Nonobstructive coronary artery disease. Patent prior LAD stent.. 2. Normal left ventricular systolic function. Ejection fraction of 60%. Recommendations * Aggressive risk factor modification. Will add Imdur for microvascular dysfunction. * Outpatient cardiology follow-up in 1 month. Interventional RX Recommendation: none Diagnostic RX Recommendation: medical therapy and/or counseling Ventriculography Ejection Fraction: 60.0 % Pressures Phase:Rest AO : 132 / 74 ( 96 ) @ 10:48:00 AM / ( 136 ) @ 10:56:00 AM 180 / 90 ( 133 ) @ 10:56:00 AM LV : 156 / -10 / 13 @ 10:55:00 AM 156 / -13 / 12 @ 10:56:00 AM 155 / 155 / 19 @ 10:56:00 AM Valves Phase:DefaultPhase AV : 0.0 @ 10:04:25 AM Clinical Evaluation EBL: 5mL-10mL Procedural Details Pre-Procedure Time Out. Identified patient by full name and date of as verbalized by the patient/guarantor. Does the consent match the physician's order: Yes. Accurate & Complete Informed Consent: Yes. Inpatient/Outpatient History & Physical on Chart: Yes. If H&P is completed, is and addenduem needed: No; If yes, is the addendum complete: N/A. Visualize and Verify Site with Patient/Guarantor: N/A. Relevant Radiology Images available: Yes. Pre-op teaching completed and patient verbalized understanding. The risks, benefits, and alternatives of sedation and/or procedure were discussed by physician. The patient agrees to continue. Procedure started. [facility] Clinical Fraility Score: 3: Managing Well. Music Department Chair Indications: Worsening Angina. Chest Pain Symptom Assessment: Typical Angina Symptoms. Correct patient, site and procedure confirmed by cath team. Current diagnosis: Chest Pain. PERRLA. Strong, equal hand secretary of state bilaterally. Lungs clear x 5 lobes. IV Site on Arrival: 20 gauge in the right anticubital. IV Fluids: 0.9% NaCl at KVO. 0 mL infused prior to clinical laboratory technician. Pre Procedural Pulses: bilateral radial was 2+. Pre Procedural Pulses: bilateral posterior tibial was 1+. Pre Procedural Pulses: bilateral dorsalis pedis was 1+. Oxygen started at 2liters/min via nasal canula. bilateral groins was prepped with chloroprep then draped in the usual sterile fashion. Baseline sample Acquired. HR: 62 BPM. Physician notified. Physician arrived. Admit Source: Out Patient. Physician scrubbed in. Immediate Pre-Procedure Time Out. Correct Patient: Yes; Correct Procedure: Yes; Correct Site: Yes; Correct Patient Position: Yes; Correct Supplies: Yes; Dried Flammable Prep: Yes; Blood Products Available: No;. Lidocaine 1% infiltrated to the right groin. Arterial access obtained with micropuncture set. A 5 slovenian JL4 catheter in over wire. Multiple views taken of left coronary artery. Catheter removed over the standard wire. A 5 slovenian JR4 catheter in over wire. Multiple views taken of right coronary artery. Catheter removed over the standard wire. A 5 slovenian Angled Pig catheter in over wire. EDP Sample taken: LV 156/-11,13; HR: 78 BPM; SpO2: 94%. LV gram performed in HOLT @ 10 mL/second for a total of 30 mL. EDP Sample taken: LV 156/-14,12; HR: 90 BPM; SpO2: 94%. Pullback taken: LV 155/155,19; AO (136); Mean: , Peak to Peak: 0mmHg, SEP: ; HR: 159 BPM; SpO2: 94%. Catheter removed over the standard wire. A Right femoral angiogram was performed to determine safe placement of closure device. Post Procedure: Pulses reassessed and unchanged. PERRLA. Strong, equal hand secretary of state bilaterally. No VTE prophylaxis required. Medication's Wasted: Lidocaine 1% = 10 mL. Medication's Wasted: Other = Diphenhydramine 25 mg. Total IV fluids: 30 mL. Post-op diagnosis: Non-obstructive CAD, Patent LAD stent. Complications: None. Estimated blood loss: 5mL-10mL. Responsiveness - Normal response to verbal stimuli; alert and oriented, PERRLA. Airway - Unaffected, no intervention required; spontaneous ventilation. Circulation: W/N/L, pulses unchanged. Nausea/Vomiting: No. A Mynx was successful obtaining hemostatsis at the Right Femoral artery insertion site LOT # [id number] EXP 11-24-2026. Procedure completed. Patient transferred by bed to 1st floor. Vital chart was stopped. Access Site Site: Right Femoral artery Sheath Size: 6 Fr Hemostasis Method: Mynx Hemostasis Success: Successful Procedure Medications Start: 9:33 AM Stop: 9:33 AM Medication: Versed Amount: 1 mg Route: I.V. Start: 9:33 AM Stop: 9:33 AM Medication: Fentanyl Amount: 50 mcg Route: I.V. Start: 9:44 AM Stop: 9:44 AM Medication: Versed Amount: 1 mg Route: I.V. Start: 9:44 AM Stop: 9:44 AM Medication: Fentanyl Amount: 50 mcg Route: I.V. Start: 9:45 AM Stop: 9:45 AM Medication: Diphendryamine Amount: 25 mg Route: I.V. I, the attending physician, have reviewed and verified all procedure medications. Yes, all medications given per verbal order History/Risk Factors Hypertension: Yes Dyslipidemia: Yes Peripheral Arterial Disease (PAD): No Myocardial Infarction (UT): No Obesity: No Renal Disease: No Tobacco Use: Never Prior Interventions PCI: Yes CABG: No Valve Surgery: No Report Signatures Finalized by Nasir Rasmussen MD on 02/02/2025 10:12 AM
--- NOTE | 2025-02-02 09:40 | W.PM.OPSUD ---
Surgery/Procedure H&P Update DATE OF PROCEDURE: February 02, 2025 DATE H&P PERFORMED: 01/25/25 H&P UPDATE INFORMATION: I have reviewed H&P completed within last 30 days, I have examined patient prior to procedure and No changes to prior documentation PREOP DIAGNOSIS: Worsening angina PRIMARY INDICATION FOR PROCEDURE: Worsening angina PLANNED PROCEDURE: Operation Date: 02/02/25 08:30 Proposed Procedures p Cardiac Catheterization - [facility] w/wo LV & Coros(Left) - Nasir Rasmussen M.D possible percutaneous coronary intervention PATIENT REASSESSED PRIOR TO SEDATION, WITH NO CHANGE NOTED: Yes PHYSICAL EXAM: alert, oriented x 3, clear to auscultation bilaterally and regular rate & rhythm AIRWAY EVAL/ANESTHESIA PLAN: normal airway, ASA III, Local Anesthesia, Risks, benefits & alternatives of sedation and/or procedure discussed and Patient agrees to continue as planned ADDITIONAL INFORMATION: Moderate sedation
--- NOTE | 2025-02-02 10:23 | PC.NURSE ---
Patient received from laboratory specialist at this time via bed. patient is s/p [facility] diagnostic only. Patient has right femoral access site with Minx closer device deployed. Dressing in place to right groin which is currently c,d,i without s/s of bleeding or hematoma formation observed. patient denies pain to site. Instruction provided regarding site care with restriction. Patient verbalized complete understanding.
--- NOTE | 2025-02-02 14:45 | PC.NURSE ---
patient up to ambulate. Patient ambulated 450ft. Patient denies SOB or chest pain. No bleeding or hematoma formation observed at this time.
--- NOTE | 2025-02-02 15:39 | PC.NURSE ---
Patient discharged to home. Instruction provided regarding follow up appointments, new medication, chest pain (cardiac/non-cardiac) and site care with restrictions. Patient verbalized complete understanding. New medication transmitted to [facility]. Dressing to right groin remains c,d,i without s/s of bleeding or hematoma formation observed. patient denies pain or needs. No distress observed. patient taken by wheelchair to private vehicle with spouse at side.
== END 2025-02-02 15:44 | disposition home or self-care (01) ==
LOC: CCL 08:07 → CSU 10:08
PROVIDERS: PCP Physician Assistant; Visit Provider Internal Medicine
DX: I25.118 Atherosclerotic heart disease of native coronary artery with other forms of angina pectoris (principal); Z95.5 Presence of coronary angioplasty implant and graft; I10 Essential (primary) hypertension; E78.5 Hyperlipidemia, unspecified; Z91.014 Allergy to mammalian meats; K21.9 Gastro-esophageal reflux disease without esophagitis
CPT/HCPCS: 36415; 93458; 99152; C1760; C1769; C1887; C1894; G0269; J1200; J1644; J2250; J3010; J3490; J7030; J9999; Q9967

== ENCOUNTER 2025-02-08 23:27 | Emergency (ER) | payer MEDICARE, OTHER, SELFPAY ==
--- NOTE | 2025-02-08 23:35 | ECG_ITS ---
[facility] Test Date: 2025-02-08 Pat Name: Jihan Sears Department: Room: Gender: Female English Tutor: : 1950 Requested By: Anthony Garcia Order Number: [id number] Iraida MD: Nasir Rasmussen M.D. Measurements Intervals [place] Rate: 72 P: 26 MA: 169 QRS: -14 QRSD: 88 T: 25 QT: 406 QTc: 445 Interpretive Statements SINUS RHYTHM WITH SINUS ARRHYTHMIA LOW QRS VOLTAGE IN PRECORDIAL LEADS [QRS DEFLECTION < 1.0 mV IN CHEST LEADS] POSSIBLE ANTERIOR MYOCARDIAL INFARCTION , OF INDETERMINATE AGE [30 ms Q WAVE IN V3/V4, OR R < 0.2 mV IN V4] Compared to ECG 10/05/2024 19:46:27 Low QRS voltage now present Myocardial infarct finding still present Electronically Signed On 02-10-2025 12:01:34 CDT by Nasir Rasmussen M.D. [id number] [id number]
--- OUTSIDE RECORDS SUMMARY | 2025-02-08 23:35 | XMS_ITS | Encounter Summary ---
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
--- OUTSIDE RECORDS SUMMARY | 2025-02-08 23:35 | XMS_ITS | Encounter Summary ---
Author Organization [facility] Address [address] [place] [address] Care Team Providers Care Poker Machine Attendant Name Role Phone Karan Grossman MD Primary Care Provider + Encounter Details Date Type Department Care Team (Late st Contact Info) Description 12/30/2007 Outpatient Historical [facility] [place] [address] [place] [address] Karan Grossman MD [address] [phone] Social History Tobacco Use Types Packs/Day Years Used Date Smoking Tobacco: Never Assessed Comments Unknown Sex and Gender Information Value Date Recorded Sex Assigned at Not on file Legal Sex Female 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
--- OUTSIDE RECORDS SUMMARY | 2025-02-08 23:35 | XMS_ITS | Encounter Summary ---
Author Organization [facility] Address [address] [place] [address] Care Team Providers Care Fish Drier Name Role Phone Karan Grossman MD Primary Care Provider + Encounter Details Date Type Department Care Team (Latest Contact Info) Description 04/15/2006 Outpatient Historical [facility] [address] [facility] [address] [place] [phone] Diego Hinson MD [address] [place] [phone] Unspecified Synovitis and Tenosynovitis (Primary Dx) Social History Tobacco Use Types Packs/Day Years Used Date Smoking Tobacco: Never Assessed Comments Unknown Sex and Gender Information Value Date Recorded Sex Assigned at Not on file Legal Sex Female 4:47 AM 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
--- OUTSIDE RECORDS SUMMARY | 2025-02-08 23:35 | XMS_ITS | Encounter Summary ---
Author Organization [facility] Address [address] [place] [address] Care Team Providers Care Right Of Way Cutter Name Role Phone Karan Grossman MD Primary Care Provider + Encounter Details Date Type Department Care Team (Latest Contact Info) Description 03/11/2006 Outpatient Historical [facility] 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
--- OUTSIDE RECORDS SUMMARY | 2025-02-08 23:35 | XMS_ITS | Clinical Summary ---
Author Organization [facility] Address [address] [place] [address] Care Team Providers Care Retail Cosmetics Sales Beauty Advisor Name Role Phone Karan Grossman MD Primary Care Provider + Allergies Active Allergy Reactions Criticality Noted Date Comments Beef Extract Rash Low 08/26/2020 Pork/Porcine Containing Products Rash Low 08/26/2020 Tetanus Vaccines And Toxoid Swelling,Other (See Comments) High 03/18/2009 Could not be woke up for almost 20 hours Medications clopidogreL (PLAVIX) 75 mg Tablet Take 75 mg by mouth. Active levothyroxine 125 mcg tablet Take 125 mcg by mouth daily in the morning. Active polyethylene glycol 3350 (Miralax) 17 gram/dose Powder Take 1 Scoop (17 Grams) by mouth daily. Dissolve in 8 ounces of fluid and drink entire liquid 510 Gram 10/26/2020 10:53 AM CDT 1 Active famotidine (PEPCID) 20 mg tablet Take 20 mg by mouth 2 times daily. 1 Active aspirin-acetaminoph en-caffeine (EXCEDRIN EXTRA STRENGTH) 250-250-65 mg Tablet Take 2 Tablets by mouth every 6 hours as needed for Headaches. 1 Active aspirin (ECOTRIN EC) 81 mg Tablet, Delayed Release (E.C.) Take 81 mg by mouth daily. 1 Active levocetirizine dihydrochloride (LEVOCETIRIZINE ORAL) Take 5 mg by mouth 4 times daily. 1 Active pantoprazole (PROTONIX) 40 mg Tablet, Delayed Release (E.C.) Take 40 mg by mouth daily in the morning. 1 Active aspirin (ECOTRIN EC) 81 mg Tablet, Delayed Release (E.C.) Take 1 Tablet (81 mg) by mouth 2 times daily. 4 Active HYDROcodone-acetami nophen (NORCO) 5-325 mg tabletIndications:C losed nondisplaced basicervical fracture of left femur with routine healing Take 1 Tablet by mouth every 6 hours as needed for Pain, Moderate. Max Daily Amount: 4 Tablets 20 Tablet 4 Active atorvastatin (LIPITOR) 40 mg tablet Take 40 mg by mouth daily. Active Active Problems Problem Noted Date Diagnosed Date Trochanteric bursitis of left hip 02/16/2024 S/P ORIF closed nondisplaced basicervical fracture of left femur, 08/10/2023 08/10/2023 Status post total right knee replacement 021 CAD (coronary atherosclerotic disease) 1 Dyslipidemia 10/04/2020 GERD (gastroesophageal reflux disease) 1 Hypothyroidism 10/04/2020 Allergic rhinitis 10/04/2020 Allergy to alpha-gal 10/04/2020 History of postoperative nausea and vomiting 02/2021 Elevated serum creatinine 10/04/2020 Resolved Problems Problem Noted Date Diagnosed Date Resolved Date Preoperative general physical examination 10/04/2020 10/24/2020 Primary osteoarthritis of right knee 10/04/2020 08/23/2023 Encounters Date Type Department Care Team Description 01/30/2025 External Device Data STL ABSTRACTION Provider, Abstract 12/12/2024 External Device Data ST[facility] ABSTRACTION Provider, Abstract 11/29/2024 External Device Data ST[facility] ABSTRACTION Provider, Abstract 11/08/2024 External Device Data [facility] ABSTRACTION Provider, Abstract from Last 3 Months Immunizations Immunization Administration Dates Next Due Hepatitis A Vaccine 12/20/1996,06/05/1996 Family History Medical History Relation Name Comments Other Daughter 1 Migraines Healthy Daughter 2 Heart Disease Father Heart attack Healthy Half-Brother Heart Disease Mother heart attack Respiratory Disease Sister 1 asthma Healthy Sister 2 Relation Name Status Comments Brother none Daughter 1 Alive Daughter 2 Alive Father Half-Brother Alive Mother Sister 1 Alive Sister 2 Alive Son none Social History Tobacco Use Types Packs/Day Years Used Date Smoking Tobacco: Never Smokeless Tobacco: Never Tobacco Cessation:Counseling Given: Not Answered Alcohol Use Standard Drinks/Week Comments Never 0 (1 standard drink = 0.6 oz pur e alcohol) Feeling Safe Answer Date Recorded Are you in a relationship wi th someone who hurts you emotionally and/or physically? 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 Gender Identity Not on file Sexual Orientation Not on file Last Filed Vital Signs Vital Sign Reading Time Taken Comments Blood Pressure 120/60 02/16/2024 1:03 PM CDT Pulse 65 08/12/2023 12:26 PM CDT Temperature 36.2 C (97.2 F) 08/12/2023 12:26 PM CDT Respiratory Rate 16 08/12/2023 12:26 PM CDT Oxygen Saturation 91% 08/12/2023 12:26 PM CDT Inhaled Oxygen Concentration - - Weight 58.1 kg (128 lb) 02/16/2024 1:03 PM CDT Height 154.9 cm (5' 1 ) 02/16/2024 1:03 PM CDT Body Mass Index 24.19 02/16/2024 1:03 PM CDT Plan of Treatment Health Maintenance Due Date Last Done Comments DTAP/TDAP/TD VACCINES (1 - Tdap) 10/06/1971 BREAST CANCER SCREENING 1992 FIT-DNA Q 3 years 1997 FIT/FOBT Q 1 year 1997 Flex Sig/CT Colonography Q 5 years 1997 PNEUMOCOCCAL VACCINE 50+ YEARS (1 of 1 - PCV) 10/06/19 03 ZOSTER VACCINE (1 of 2) 2002 RSV VACCINE (60+ or ) (1 - Risk 60-74 years 1-dose series) 2012 OSTEOPOROSIS SCREENING 2017 06/18/2005 INFLUENZA VACCINE (#1) 2024 COLORECTAL SCREENING 11/08/2028 11/08/2018 Colorectal Cancer Screening 11/08/2028 Medical Devices Implanted Type Area Customer Relations Consultant Device Identifier Shelf Expiration Date Model / Serial / Lot [place] Fem Neck 85mm 04.168.285s - [id number] Implanted:Qty: 1 on 08/10/2023 by Caden Parnell MD at [facility] [place] Left: Hip [employer]- [employer]PU[employer] SY[employer] [id number] 04/25/2033 04.168.285S / / [id number] Cement [place] Mv Zirconium Dioxide St Lf Disp [id number] - [id number] Implanted:Qty: 1 on 10/25/2020 by Diego Tomlinson MD at [facility] Cement Right: Knee [employer] [id number] 05/26/2022 [id number] / / [id number] Cement [place] Mv Zirconium Dioxide St Lf Disp [id number] - [id number] Implanted:Qty: 1 on 10/25/2020 by Diego Tomlinson MD at [facility] Cement Right: Knee [employer] [id number] 05/26/2022 [id number] / / [id number] Comp Tib Attune Fb Cmnt Sz5 1506-70-005 - [id number] Implanted:Qty: 1 on 10/25/2020 by Diego Tomlinson MD at [facility] Knee Right: Knee [employer] [id number] 06/23/2030 [id number] / / [id number] Insert Attune Fb Cr Sz4 8mm 1516-20-408 - [id number] Implanted:Qty: 1 on 10/25/2020 by Diego Tomlinson MD at [facility] Knee Right: Knee [employer] [id number] 08/23/2025 [id number] / / [id number] Comp Fem Attune Cr Sz 4 Rt Cmntd 1504-00-204 - [id number] Implanted:Qty: 1 on 10/25/2020 by Diego Tomlinson MD at [facility] Knee Right: Knee [employer] [id number] 06/23/2029 [id number] / / [id number] Plate Fem Neck 2hl 04.268.000s - [id number] Implanted:Qty: 1 on 08/10/2023 by Caden Parnell MD at [facility] Plate Left: Hip [employer]- [employer] [id number] 04/25/2033 04.268.000S / / [id number] Screw Fem Neck Antirotate 95mm 04.168.495s - [id number] Implanted:Qty: 1 on 08/10/2023 by Caden Parnell MD at [facility] Screw Left: Hip [employer]- [employer] [id number] 04/25/2033 04.168.495S / / [id number] Screw Stp Loc Strdr 38mm T25 412.213s - [id number] Implanted:Qty: 1 on 08/10/2023 by Caden Parnell MD at [facility] Screw Left: Hip [employer]- [employer] [id number] 01/23/2033 412.213S / / [id number] Screw Stp Loc Strdr 5.0x36mm 412.212s - [id number] Implanted:Qty: 1 on 08/10/2023 by Caden Parnell MD at [facility] Screw Left: Hip [employer]- [employer] [id number] 05/26/2033 412.212S / / [id number] Insurance MEDICARE PART A AND B [employer] SUPP RX [employer] Medicare Part D Advance Directives For more information, please contact: [phone] * Full Code (Latest Code Status on File) Date Activated Date Inactivated Comments 08/10/2023 2:55 PM 08/12/2023 4:03 PM * Full Code Date Activated Date Inactivated Comments 08/10/2023 3:02 AM 08/10/2023 2:55 PM Care Teams Retail Cosmetics Sales Beauty Advisor Relationship Specialty Start Date End Date Karan Grossman MD [address] [place] [phone] PCP - General 11/09/05
--- OUTSIDE RECORDS SUMMARY | 2025-02-08 23:35 | XMS_ITS | Clinical Summary ---
Author Organization [facility] Address [address] [place] [address] Care Team Providers Care Answerer Name Role Phone Karan Grossman MD Primary Care Provider + Allergies Active Allergy Reactions Criticality Noted Date Comments Beef Extract Rash Low 08/26/2020 Pork/Porcine Containing Products Rash Low 08/26/2020 Tetanus Vaccines And Toxoid Swelling,Other (See Comments) High 03/18/2009 Could not be woke up for almost 20 hours Medications levothyroxine 125 mcg tablet Take 125 mcg by mouth daily in the morning. Active pantoprazole (PROTONIX) 40 mg Tablet, Delayed Release (E.C.) Take 40 mg by mouth daily in the morning. Active famotidine (PEPCID) 20 mg tablet Take 20 mg by mouth 2 times daily. Active levocetirizine dihydrochloride (LEVOCETIRIZINE ORAL) Take 5 mg by mouth 4 times daily. Active simvastatin (ZOCOR) 40 mg tablet Take 40 mg by mouth daily with supper. Active clopidogreL (PLAVIX) 75 mg Tablet Take 75 mg by mouth. Active aspirin (ECOTRIN EC) 81 mg Tablet, Delayed Release (E.C.) Take 81 mg by mouth daily. Active aspirin-acetaminophe n-caffeine (EXCEDRIN EXTRA STRENGTH) 250-250-65 mg Tablet Take 2 Tablets by mouth every 6 hours as needed for Headaches. Active Active Problems Problem Noted Date Diagnosed Date Preoperative general physical examination 2020 Primary osteoarthritis of right knee 10/04/2020 CAD (coronary atherosclerotic disease) 1 Dyslipidemia 10/04/2020 GERD (gastroesophageal reflux disease) 06/11/202 1 Hypothyroidism 10/04/2020 Allergic rhinitis 10/04/2020 Allergy to alpha-gal 10/04/2020 History of postoperative nausea and vomiting 02/2021 Elevated serum creatinine 10/04/2020 Immunizations Immunization Administration Dates Next Due Hepatitis [...] Date Smoking Tobacco: Never Smokeless Tobacco: Never Alcohol Use Standard Drinks/Week Comments Never 0 (1 standard drink = 0.6 oz pur e alcohol) Comments No Sex and Gender Information Value Date Recorded Sex Assigned at Not on file 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 Gender Identity Not on file Sexual Orientation Not on file Last Filed Vital Signs Vital Sign Reading Time Taken Comments Blood Pressure 138/70 10/04/2020 9:50 AM CDT Pulse 60 10/04/2020 9:50 AM CDT Temperature 36.4 C (97.6 F) 10/04/2020 9:50 AM CDT Respiratory Rate 16 10/04/2020 9:50 AM CDT Oxygen Saturation 100% 10/04/2020 9:50 AM CDT Inhaled Oxygen Concentration - - Weight 59 kg (130 lb) 10/04/2020 9:50 AM CDT Height 154.9 cm (5' 1 ) 10/04/2020 9:50 AM CDT Body Mass Index 24.56 10/04/2020 9:50 AM CDT Plan of Treatment Health Maintenance Due Date Last Done Comments DTAP/TDAP/TD VACCINES (1 - Tdap) 10/06/1971 COLORECTAL SCREENING 1997 Colorectal Cancer Screening 1997 FIT-DNA Q 3 years 1997 FIT/FOBT Q 1 year 1997 Flex Sig/CT Colonography Q 5 years 1997 PNEUMOCOCCAL VACCINE 50+ YEARS (1 of 1 - PCV) 10/06/19 03 ZOSTER VACCINE (1 of 2) 2002 BREAST CANCER SCREENING 09/07/2007 09/06/2006 RSV VACCINE (60+ or ) (1 - Risk 60-74 years 1-dose series) 2012 OSTEOPOROSIS SCREENING 2017 INFLUENZA VACCINE (#1) 2024 Insurance MEDICARE PART A AND B [employer] Care Teams Answerer Relationship Specialty Start Date End Date Karan Grossman MD [address] [phone] PCP - General 11/09/05
--- OUTSIDE RECORDS SUMMARY | 2025-02-08 23:35 | XMS_ITS | Encounter Summary ---
Author Organization [facility] Address [address] [place] [address] Care Team Providers Care Spud Sorter Name Role Phone Karan Grossman MD Primary Care Provider + Encounter Details Date Type Department Care Team (Late st Contact Info) Description 04/07/2008 Ancillary Orders [facility] Albert Nash [address] [place] [address] Sue Cash MD [address] [address] Other Screening Mammogram Social History Tobacco Use Types Packs/Day Years Used Date Smoking Tobacco: Never Assessed Comments Unknown Sex and Gender Information Value Date Recorded Sex Assigned at Not on file Legal Sex Female 4:47 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
--- OUTSIDE RECORDS SUMMARY | 2025-02-08 23:36 | XMS_ITS | Encounter Summary ---
Author Organization [facility] Address [address] [place] [address] Care Team Providers Care Front End Web Designer Name Role Phone Karan Grossman MD Primary Care Provider + Encounter Details Date Type Department Care Team (Latest Contact Info) Description 11/09/2005 Outpatient Historical [facility] [address] [facility] [address] [place] [address] Yaron Diaz MD [address] [facility] [address] [place] [address] Degeneration of Cervical Intervertebral Disc (Primary Dx) Social History Tobacco Use Types Packs/Day Years Used Date Smoking Tobacco: Never Assessed Comments Unknown Sex and Gender Information Value Date Recorded Sex Assigned at Not on file Legal Sex Female 4:47 AM C4 PLANNER Gender Identity Not on file Sexual Orientation Not on file documented as of this encounter Plan of Treatment Not on file documented as of this encounter Visit Diagnoses Diagnosis Degeneration of cervical intervertebral disc- Primary documented in this encounter Care Teams Front End Web Designer Relationship Specialty Start Date End Date Karan Grossman MD [address] [phone] PCP - General 11/09/05 documented as of this encounter
--- OUTSIDE RECORDS SUMMARY | 2025-02-08 23:36 | XMS_ITS | Encounter Summary ---
Author Organization [facility] Address [address] [place] [address] Care Team Providers Care Stave Hewer Name Role Phone Karan Grossman MD Primary Care Provider + Encounter Details Date Type Department Care Team (Latest Contact Info) Description 11/09/2005 Outpatient Historical [facility] [address] [place] [address] [facility] [address] [address] Intervertebral Cervical Disc Disorder with Myelopathy, Cervical Region (Primary Dx); Cervical Spondylosis with Myelopathy; Degeneration of Cervical Intervertebral Disc; Cervicalgia Social History Tobacco Use Types Packs/Day Years Used Date Smoking Tobacco: Never Assessed Comments Unknown Sex and Gender Information Value Date Recorded Sex Assigned at Not on file 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
--- OUTSIDE RECORDS SUMMARY | 2025-02-08 23:36 | XMS_ITS | Encounter Summary ---
Author Organization [facility] Address [address] [place] [address] Care Team Providers Care Assignment Clerk Name Role Phone Karan Grossman MD Primary Care Provider + Encounter Details Date Type Department Care Team (Latest Contact Info) Description 06/03/2006 Outpatient Historical [facility] 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
--- OUTSIDE RECORDS SUMMARY | 2025-02-08 23:36 | XMS_ITS | Encounter Summary ---
Author Organization [facility] Address [address] [place] [address] Care Team Providers Care Medical Imaging Director Name Role Phone Karan Grossman MD Primary Care Provider + Encounter Details Date Type Department Care Team (Latest Contact Info) Description 01/09/2003 Outpatient Historical [facility] Cardiac Wig Sales Consultant [address] [place] [address] Sang Arellano MD [address] [facility] [address] [place] [address] CHEST PAIN NEC (Primary Dx) Social History Tobacco Use Types Packs/Day Years Used Date Smoking Tobacco: Never Assessed Comments Unknown Sex and Gender Information Value Date Recorded Sex Assigned at Not on file 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
--- OUTSIDE RECORDS SUMMARY | 2025-02-08 23:36 | XMS_ITS | Encounter Summary ---
Author Organization [facility] Address [address] [place] [address] Care Team Providers Care Network Infrastructure Architect Name Role Phone Karan Grossman MD Primary Care Provider + Encounter Details Date Type Department Care Team (Latest Contact Info) Description 09/07/2005 Outpatient Historical [facility] [address] [facility] [address] [place] [phone] Linnea Riddle MD NO ADDRESS ON FILE Other Screening Mammogram (Primary Dx) Social History Tobacco Use Types Packs/Day Years Used Date Smoking Tobacco: Never Assessed Comments Unknown Sex and Gender Information Value Date Recorded Sex Assigned at Not on file 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
--- OUTSIDE RECORDS SUMMARY | 2025-02-08 23:36 | XMS_ITS | Encounter Summary ---
Author Organization [facility] Address [address] [place] [address] Care Team Providers Care First Assistant Name Role Phone Karan Grossman MD Primary Care Provider + Encounter Details Date Type Department Care Team (Late st Contact Info) Description 09/07/2005 Outpatient [facility] [address] [place], [place] [address] Taye Sinclair MD [address] [address] Other Screening Mammogram (Primary Dx) Social History Tobacco Use Types Packs/Day Years Used Date Smoking Tobacco: Never Assessed Comments Unknown Sex and Gender Information Value Date Recorded Sex Assigned at Not on file Legal Sex Female 4:47 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
--- OUTSIDE RECORDS SUMMARY | 2025-02-08 23:36 | XMS_ITS | Encounter Summary ---
Author Organization [facility] Address [address] [place] [address] Care Team Providers Care Workcell Operator Name Role Phone Karan Grossman MD Primary Care Provider + Encounter Details Date Type Department Care Team (Late st Contact Info) Description 09/07/[address] 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 Gender Identity Not on file Sexual Orientation Not on file documented as of this encounter Plan of Treatment Not on file documented as of this encounter Visit Diagnoses Diagnosis Routine medical exam- Primary Routine general medical examination at a health care facility Routine gynecological examination Screening for malignant neoplasm of the rectum Other specified genital prolapse(618.89) Other specified genital prolapse documented in this encounter Care Teams Workcell Operator Relationship Specialty Start Date End Date Karan Grossman MD [address] [phone] PCP - General 11/09/05 documented as of this encounter
--- OUTSIDE RECORDS SUMMARY | 2025-02-08 23:36 | XMS_ITS | Encounter Summary ---
Author Organization [facility] Address [address] [place] [address] Care Team Providers Care Chief Accounting Officer Name Role Phone Karan Grossman MD Primary Care Provider + Encounter Details Date Type Department Care Team (Latest Contact Info) Description 10/03/1997 Outpatient Historical [facility] [address] [facility] [address] [place] [address] Linnea Riddle MD NO ADDRESS ON FILE Other sign and symptom in breast (Primary Dx) Social History Tobacco Use Types Packs/Day Years Used Date Smoking Tobacco: Never Assessed Comments Unknown Sex and Gender Information Value Date Recorded Sex Assigned at Not on file 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
--- OUTSIDE RECORDS SUMMARY | 2025-02-08 23:36 | XMS_ITS | Encounter Summary ---
Author Organization [facility] Address [address] [place] [address] Care Team Providers Care Publishing Manager Name Role Phone Karan Grossman MD Primary Care Provider + Encounter Details Date Type Department Care Team (Late st Contact Info) Description 09/06/2006 Outpatient Historical [facility] [address] [place] [address] Alphonse Beckwith MD [address] [facility] [address] [place] [address] Social History Tobacco Use Types Packs/Day Years Used Date Smoking Tobacco: Never Assessed Comments Unknown Sex and Gender Information Value Date Recorded Sex Assigned at Not on file 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
--- OUTSIDE RECORDS SUMMARY | 2025-02-08 23:36 | XMS_ITS | Encounter Summary ---
Author Organization [facility] Address [address] [place] [address] Care Team Providers Care Event Manager Name Role Phone Karan Grossman MD Primary Care Provider + Encounter Details Date Type Department Care Team (Latest Contact Info) Description 04/28/[address] [facility] 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
--- OUTSIDE RECORDS SUMMARY | 2025-02-08 23:36 | XMS_ITS | Encounter Summary ---
Author Organization [facility] Address [address] [place] [address] Care Team Providers Care Carpet Cutter Name Role Phone Karan Grossman MD Primary Care Provider + Encounter Details Date Type Department Care Team (Late st Contact Info) Description 09/07/2005 Outpatient [facility] [address] [place] [address] Taye Sinclair MD [address] [facility] [address] [place] [address] Social History Tobacco Use Types Packs/Day Years Used Date Smoking Tobacco: Never Assessed Comments Unknown Sex and Gender Information Value Date Recorded Sex Assigned at Not on file 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
--- OUTSIDE RECORDS SUMMARY | 2025-02-08 23:36 | XMS_ITS | Encounter Summary ---
Author Organization [facility] Address [address] [place] [address] Care Team Providers Care Shredder Tender Name Role Phone Karan Grossman MD Primary Care Provider + Encounter Details Date Type Department Care Team (Latest Contact Info) Description 04/03/1998 Outpatient Historical [facility] [address] [facility] [address] [place] [address] Sergio Mejias MD NO ADDRESS ON FILE Other sign and symptom in breast (Primary Dx) Social History Tobacco Use Types Packs/Day Years Used Date Smoking Tobacco: Never Assessed Comments Unknown Sex and Gender Information Value Date Recorded Sex Assigned at Not on file 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
--- OUTSIDE RECORDS SUMMARY | 2025-02-08 23:36 | XMS_ITS | Encounter Summary ---
Author Organization [facility] Address [address] [place] [address] Care Team Providers Care Appetizer Packer Name Role Phone Karan Grossman MD Primary Care Provider + Encounter Details Date Type Department Care Team (Latest Contact Info) Description 09/06/2006 Outpatient Historical [facility] [address] [place] [phone] Linnea Riddle MD NO ADDRESS ON FILE Other Screening Mammogram (Primary Dx) Social History Tobacco Use Types Packs/Day Years Used Date Smoking Tobacco: Never Assessed Comments Unknown Sex and Gender Information Value Date Recorded Sex Assigned at Not on file 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
--- OUTSIDE RECORDS SUMMARY | 2025-02-08 23:36 | XMS_ITS | Encounter Summary ---
Author Organization [facility] Address [address] [place] [address] Care Team Providers Care Creamery Worker Name Role Phone Karan Grossman MD Primary Care Provider + Encounter Details Date Type Department Care Team (Latest Contact Info) Description 09/06/2006 Outpatient Historical 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
--- OUTSIDE RECORDS SUMMARY | 2025-02-08 23:36 | XMS_ITS | Encounter Summary ---
Author Organization [facility] Address [address] [place] [address] Care Team Providers Care Hoisting Engine Operator Name Role Phone Karan Grossman MD Primary Care Provider + Encounter Details Date Type Department Care Team (Latest Contact Info) Description 09/06/2006 Outpatient Historical [facility] Andrez [address] [place] [address] Alphonse Beckwith MD [address] 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
--- OUTSIDE RECORDS SUMMARY | 2025-02-08 23:36 | XMS_ITS | Data Portability ---
[facility] Organization [facility] Address [address] [facility] [facility] [address] [place] [address] Care Team Providers Care Reimbursement Liaison Name Role Phone ESTRELLA ANDERSON Primary Care Provider Unavailabl e Assessment No assessment recorded. Plan of Treatment Reminders Order Date Submit Date Provider Last Modified By Organization Details Last Modified Time Details Appointments None recorded. Lab CMP, serum or plasma 2024 025 [facility], [address], [address], 10:59:04 lipid panel, blood 2024 025 [facility], [address], [address], 5 10:59:02 CBC 2024 025 [facility], [address], [address], 5 09:57:15 thyrotropi n, QN, serum or plasma 2024 025 [facility], [address], [address], 5 10:12:40 ESR (erythrocy te sedimentat ion rate), blood 2024 025 [facility] [address] [place], [address], 5 10:56:37 vitamin D, 25-hydroxy , total, serum 2024 025 [facility], [address] [place] [address], [address], [place], [address], 5 07:24:29 vitamin B12 + folate, serum or blood 2024 025 [facility], [address] [place] [address], [address], [place], [address], 5 07:24:28 C-reactive protein, quantitati ve, serum or plasma 2024 025 [facility], [address] [place] [address], [address], [place], [address], 5 07:24:27 magnesium, serum or plasma 2024 025 [facility], [address] [place] [address], [address], [place], [address], 5 07:24:26 cortisol, serum or plasma 2024 025 [email or web address], [address] [place] [address], [address], [place], [address], 5 14:41:23 Referral physical therapist referral [address], [address] [place], [address], 5 18:02:02 Procedures None recorded. Surgeries None recorded. Imaging XR, hip + pelvis, unilateral , 2 or 3 view 2024 025 [facility], [address] [place], [address], 5 12:27:20 Medication Orders famotidine 20 mg tablet 2024 025 [facility]95115, [address], [place], [place], [id number], 5 13:04:19 pantoprazo le 40 mg tablet,del ayed release 2024 025 [facility] #99940, [address], [place], [place], [id number], 5 13:04:21 atorvastat in 40 mg tablet 2024 025 [facility] #57022, [address], [place], [place], [id number], 5 13:04:20 levofloxac in 750 mg tablet 2023 025 [facility]52398, [address], [place], [place], [id number], 5 15:16:38 prednisone 20 mg tablet 2023 025 [facility] #29842, [address], [place], [place], [id number], 5 15:16:25 promethazi ne-DM 6.25 mg-15 mg/5 mL oral syrup 2023 025 [facility] #02211, [address], [place], [place], [id number], 5 15:16:39 azithromyc in 250 mg tablet 2023 024 [facility] #20516, [address], [place], [place], [id number], 11:27:38 benzonatat e 200 mg capsule 2023 025 [facility]53494, [address], [place], [place], [id number], 15:15:44 Patient TargetsNo targets recorded. Patient InstructionsNo instructions recorded. Reason for Referral Physical Therapist Referral for Weakness of bilateral lower limb Referring Physician: Estrella Anderson, Family Medicine, Encounter Date: 10/20/2024 Results Created Date Observation Date Name Description Value Unit Range Abnormal Flag Note LastModifiedBy Organization Detail LastModifiedTime 10/24/1910/23/2024 CBC WBC 6.0 x10 4.0-10 .5 Not Available [facility] [address] [facility] [address], [place], [address], 10/23/2024 09:57:15 10/24/1910/23/2024 CBC RBC 4.55 x10 3.50-5 .50 Not Available [facility] [address] [facility], [place], [address], 10/23/2024 09:57:15 10/24/1910/23/2024 CBC HGB 12.9 g/dL 12.0-1 6.0 Not Available [facility] [address] [facility] [address], [place], [address], 10/23/2024 09:57:15 10/24/1910/23/2024 CBC HCT 40.6 % 37.0-4 7.0 Not Available [facility] [address] [facility], [place], [address], 10/23/2024 09:57:15 10/24/1910/23/2024 CBC MCV 89.2 fL 80.0-9 9.9 Not Available [facility] [address] [place] [address] [facility], [place], [address], 10/23/2024 09:57:15 10/24/19 25 10/23/2024 CBC MCH 28.2 pg 27.0-3 2.0 Not Available [facility] [address] [facility], [place], [address], 10/23/2024 09:57:15 10/24/1910/23/2024 CBC MCHC 31.7 g/dL 32.0-3 6.0 low Not Available [facility] [address] [facility], [place], [address], 10/23/2024 09:57:15 10/24/1910/23/2024 CBC RDW 14.9 % 11.5-1 4.5 high Not Available [facility] [address] [place] [address] [facility], [place], [address], 10/23/2024 09:57:15 10/24/1910/23/2024 CBC plt 351.1 x10 140.0- 451.0 Not Available [facility] [address] [facility], [place], [address], 10/23/2024 09:57:15 10/24/1910/23/2024 CBC lymphocytes % 44.0 % 20.0-5 0.0 Not Available [facility] [address] [place] [address] [facility], [place], [address], 10/23/2024 09:57:15 10/24/1910/23/2024 CBC granulcytes % 44.2 % 30.0-7 0.0 Not Available [facility] [address] [place] [address] [facility], [place], [address], 10/23/2024 09:57:15 10/24/19 25 10/23/2024 CBC monocytes % 7.1 % 2.0-16 .0 Not Available [facility] [address] [facility], [place], [address], 10/23/2024 09:57:15 10/24/19 25 10/23/2024 CBC granulcytes# 2.6 x10 Not Adelina ilable [facility] [address] [facility], [place], [address], 10/23/2024 09:57:15 10/24/19 25 10/23/2024 CBC lymphocytes # 2.6 x10 Not Available [facility] [address] [facility], [place], [address], 10/23/2024 09:57:15 10/24/19 25 10/23/2024 CBC monocytes # 0.4 x10 Not Avai lable [facility] [address] [facility], [place], [address], 10/23/2024 09:57:15 10/24/19 25 10/23/2024 TSH TSH 10.24 uIU/m L 0.49-3 .82 high Not Available [facility] [address] [facility], [place], [address], 10/23/2024 10:12:40 10/24/19 25 10/23/2024 LIPID PROFI LE (FEMA LE) cholesterol 231.0 mg/dL 0.0-20 0.0 high Not Available [facility] [address] [facility], [place], [address], 10/23/2024 10:59:02 10/24/19 25 10/23/2024 LIPID PROFI LE (FEMA LE) trig 94.0 mg/dL 0.0-15 0.0 Not Available [facility] [address] [facility], [place], [address], 10/23/2024 10:59:02 10/24/19 25 10/23/2024 LIPID PROFI LE (FEMA LE) HDL - direct 53.0 mg/dL >40.[address] [facility] [address] [facility] [address], [place], [address], 10/23/2024 10:59:02 10/24/19 25 10/23/2024 LIPID PROFI LE (FEMA LE) VLDL - direct 18.8 mg/dL Not Available [facility] [address] [facility] 1, [place], [address], 10/23/2024 10:59:02 10/24/19 25 10/23/2024 LIPID PROFI LE (FEMA LE) LDL - direct 159.2 mg/dL 0.0-13 0.0 high Not Available [facility] [address] [facility] 1, [place], [address], 10/23/2024 10:59:02 10/24/19 25 10/23/2024 CMP (FEMA LE) glucose 95.0 mg/dL 60.0-9 9.0 Not Available [facility] [address] [address], [place], [address], 10/23/2024 10:59:04 10/24/19 25 10/23/2024 CMP (FEMA LE) BUN (blood urea nitrogen) 13.0 mg/dL 10.0-2 6.0 Not Available [facility] [address] [facility] 1, [place], [address], 10/23/2024 10:59:04 10/24/19 25 10/23/2024 CMP (FEMA LE) creatinine (serum) 0.9 mg/dL 0.4-1. 5 Not Available [facility] [address] [facility] [address], [place], [address], 10/23/2024 10:59:04 10/24/19 25 10/23/2024 CMP (FEMA LE) BUN/creatini ne ratio 14.44 ratio Not Available [facility] [address] [facility] 1, [place], [address], 10/23/2024 10:59:04 10/24/19 25 10/23/2024 CMP (FEMA LE) eGFR calculated 65.[address] [facility] [address] [facility] 1, [place], [address], 10/23/2024 10:59:04 10/24/19 25 10/23/2024 CMP (FEMA LE) total protein 7.0 g/dL 6.0-8. 5 Not Available [facility] [address] [facility] [address], [place], [address], 10/23/2024 10:59:04 10/24/19 25 10/23/2024 CMP (FEMA LE) total bilirubin 0.5 mg/dL 0.2-1. 3 Not Available [facility] [address] [facility] 1, [place], [address], 10/23/2024 10:59:04 10/24/19 25 10/23/2024 CMP (FEMA LE) albumin 3.9 g/dL 3.5-5. 5 Not Available [facility] [address] [address], [place], [address], 10/23/2024 10:59:04 10/24/19 25 10/23/2024 CMP (FEMA LE) globulin 3.1 calc Not Available [facility] [address] [facility] 1, [place], [address], 10/23/2024 10:59:04 10/24/19 25 10/23/2024 CMP (FEMA LE) AST (SGOT) 23.0 U/L 0.0-46 .0 Not Available [facility] [address] [facility] 1, [place], [address], 10/23/2024 10:59:04 10/24/19 25 10/23/2024 CMP (FEMA LE) altv (SGPT) 15.0 U/L 13.0-6 9.0 normal Not Available [facility] [address], [place], [address], 10/23/2024 10:59:04 10/24/19 25 10/23/2024 CMP (FEMA LE) A/G ratio 1.3 ratio Not Available [facility] [address] [facility], [place], [address], 10/23/2024 10:59:04 10/24/19 25 10/23/2024 CMP (FEMA LE) ALP phos 91.0 U/L 30.0-1 40.0 normal Not Available [facility] [address] [facility] [address], [place], [address], 10/23/2024 10:59:04 10/24/19 25 10/23/2024 CMP (FEMA LE) calcium 9.2 mg/dL 8.4-10 .5 Not Available [facility] [address] [facility], [place], [address], 10/23/2024 10:59:04 10/24/19 25 10/23/2024 CMP (FEMA LE) sodium 139.0 mmol/ L 136.0- 145.0 Not Available [facility] [address] [facility] 1, [place], [address], 10/23/2024 10:59:04 10/24/19 25 10/23/2024 CMP (FEMA LE) potassium 4.2 mmol/ L 3.5-5. 1 Not Available [facility] [address] [facility] 1, [place], [address], 10/23/2024 10:59:04 10/24/19 25 10/23/2024 CMP (FEMA LE) chloride 106.0 mmol/ L 98.0-1 10.0 normal Not Available [facility] [address] [facility] [address], [place], [address], 10/23/2024 10:59:04 10/24/19 25 10/23/2024 CMP (FEMA LE) C02 28.0 mmol/ L 22.0-3 1.0 Not Available [facility] [address] [facility] [address], [place], [address], 10/23/2024 10:59:04 10/24/19 25 10/23/2024 CMP (FEMA LE) anion gap 5.0 calc Not Available [facility] [address] [facility] [address], [place], [address], 10/23/2024 10:59:04 10/24/19 25 10/23/2024 CMP (FEMA LE) osmolality 287.1 calc Not Available [facility] [address] [facility] [address], [place], [address], 10/23/2024 10:59:04 10/24/19 25 10/24/2024 MAGNE SIUM magnesium 2.1 mg/dL 1.5-2. 5 normal Not Available [facility] [address] [place], [address], 10/24/2024 07:24:26 10/24/19 25 10/24/2024 C-NICKO CTIVE PROTE IN C-reactive protein <3.0 mg/L <8.0 normal Not Available [facility] [address] [place], [address], 10/24/2024 07:24:27 10/24/19 25 10/24/2024 VITAM IN B12/F OLATE , SERUM PANEL vitamin B12 280 pg/mL 200-11 00 normal Pleas e Note: Altho ugh the refer ence range for vitam in B12 is 200-1 100 pg/mL , it has been repor buck that betwe en 5 and 10% of patie nts with value s betwe en 200 and 400 pg/mL may exper ience neuro psych iatri c and hemat ologi c abnor malit ies due to occul t B12 defic iency ; less than 1% of patie nts with value s above 400 pg/mL will have sympt oms. Not Available [facility] [address] [place], [address], 10/24/2024 07:24:28 10/24/19 25 10/24/2024 VITAM IN B12/F OLATE , SERUM PANEL folate, serum 6.7 NG/mL normal Refer ence Range Low: <3.4 Borde rline : 3.4-5 .4 Deya l: >5.4 Not Available [facility] [address] [place], [address], 10/24/2024 07:24:28 10/24/19 25 10/24/2024 VITAM IN D,25- OH,TO MIRELLA,I A vitamin D,25-oh,tota l,ia 29 NG/mL 30-100 low Vitam in D Statu s 25-OH Vitam in D: Defic iency : <20 ng/mL Insuf ficie ncy: 20 - 29 ng/mL Optim al: > or = 30 ng/mL For 25-OH Vitam in D testi ng on patie nts on D2-randhawa pplem entat ion and patie nts for whom quant itati on of D2 and D3 fract ions is requi red, the [employer] Assur eD(TM ) 25-OH VIT D, (D2,D 3), LC/MS /MS is recom mily d: order code 36582 (lamar ents >2yrs ). See Note 1 Note 1 For addit ional infor dc freeman e refer to http: [email or web address] [email or web address] om/fa q/FAQ 199 (This link is being provi ded for infor mike andrews/ educa lucas l purpo ses only. ) Not Available [facility] [address] [place], [address], 10/24/2024 07:24:29 10/24/19 25 10/23/2024 ESR (eryt hrocy te sedim entat ion rate) , blood SedRate 11 Not Available [facility] [address] [place], [address], 10/23/2024 09:20:58 02/14/20 24 02/14/2024 MRI, brain , w/o contr ast No observ ation record ed. [address] [place], [address], 02/15/2024 15:22:50 03/08/20 24 03/08/2024 CT, hip, w/o contr ast No observ ation record ed. [email or web address] [place], [address], 03/08/2024 13:27:31 08/25/19 25 08/23/2024 XR, hip + pelvi s, unila teral , 2 or 3 view No observ ation record ed. [address] [place], [address], 08/25/2024 08:51:36 Result Notes None recorded. Problems Name Problem SNOMED Code Status Onset Date Resolution Date Notes Provider Name and Address Organization Details Recorded Time Chest pain 14091581 Completed 201808/31/2018 CHEST PAIN, MUSCULOS KELETAL - Status is Resolved ; Resolved Date: 09/01/19; Recorded 09/01/19 4:11PM by Estrella Anderson PA-C, Annotati on/Adden dum; Promoted ; acuity set as *; Not Available [facility] 03:07:41 Generali zed anxiety disorder 65234245 Completed 202012/09/2020 ANXIETY STATE - Status is Inactive ; Recorded 12/10/19 9:21AM by Estrella Anderson PA-C, Annotati on/Adden dum; Promoted ; acuity set as *; Not Available [facility] 3 03:07:40 Deficien cy of alpha-ga lactosid ase 306865369 Completed 202012/09/2020 ALPHA GALACTOS IDASE DEFICIEN CY - Status is Inactive ; 12/10/19 9:20AM by Estrella Anderson PA-C, Annotati on/Adden dum; Promoted ; acuity set as *; Not Available [facility] 3 03:07:41 Gastroes ophageal reflux disease 607141172 Active 2022 ESOPHAGE AL REFLUX; Recorded 05/01/19 23 8:36AM by Estrella Anderson PA-C, Office Visit; Promoted ; acuity set as *; VALERIE [facility], [facility] 5 15:13:49 Backache 645040745 Completed 202205/01/2022 BACKACHE - Status is Inactive ; Recorded 05/01/19 8:34AM by Estrella Anderson PA-C, Annotati on/Adden dum; Promoted ; acuity set as *; Not Available [facility] 3 03:07:41 Vitamin D deficien cy 73044509 Active 2022 VITAMIN D DEFICIEN CY; Recorded 05/01/19 23 8:36AM by Estrella Anderson PA-C, Office Visit; Promoted ; acuity set as *; VALERIE [facility], L.LDestineyCDestiney 5 15:14:05 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 85062693 Active 2022 ALLERGY TO ALPHA-GA L; Recorded 05/01/19 23 8:36AM by Estrella Anderson PA-C, Office Visit; Promoted ; acuity set as *; VALERIE [facility], [facility] 5 15:13:43 Pain in left knee Completed 202205/01/2022 LEFT KNEE PAIN - Status is Inactive ; Recorded 05/01/19 8:34AM by Estrella Anderson PA-C, Albertati on/Adden dum; Promoted ; acuity set as *; Not Available [facility] 03:07:42 Replacem ent of total knee joint Completed 202208/23/2024 HISTORY OF KNEE REPLACEM ENT; Recorded 05/01/19 8:36AM by Estrella Anderson PA-C, Office Visit; Promoted ; acuity set as *; VALERIE [facility], L.L.CDestiney 5 15:13:57 Transien t cerebral ischemia 452442251 Active 2022 TIA (TRANSIE NT ISCHEMIC ATTACK); Recorded 05/01/19 8:36AM by Estrella Anderson PA-C, Office Visit; Promoted ; acuity set as *; VALERIE [facility], L.L.CDestiney 5 15:14:01 Hypothyr oidism 52569500 Active 2022 Hypothyr oidism - Status is Inactive ; 12/10/19 21 9:20AM by Estrella Anderson PA-C, Annotati on/Adden dum; Promoted ; acuity set as *; ; Start Date : 12/10/19 21 HYPOT HYROIDIS M; Recorded 05/01/19 8:36AM by Estrella Anderson PA-C, Office Visit; Promoted ; acuity set as *; VALERIE [facility], L.L.CDestiney 5 15:13:53 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 Procedures Surgical History Date Name Laterality Status Provider Name and Address Organization Details Recorded Time [facility] 12:59:02 9 colonoscopy completed [facility], LD[facility]ahi 08/03/2023 09:58:18 6 [facility]23 10:00:15 Imaging Results None recorded. Procedure Notes None recorded. Medical Equipment None Reported. Allergies Allergen ID Allergen Name Allergen Category Reaction Reaction Severity Criticality Documentation Date Start Date Code Code System Note Provider Name and Address Organization Details Recorded Time 92420 Vaccine product containin g only Clostridi um tetani antigen (medicina l product) medicatio n Not available Not available Not available 11/21/2022 24834 2002 SNOMED Comme nt: Recor ded 05/01 6:56A M by Jakub lowe LPN, Offic e Visit ; Promo buck; Signi fican ce: *; ; Not Available [facility] 3 02:29:04 22074 Rufen medicatio n Not available Not available Not available 11/21/202265148 1 RxNorm Comme nt: Recor ded 05/01 6:56A M by Jakub lowe LPN, Offic e Visit ; Promo buck; Signi fican ce: *; ; Not Available [facility] 3 02:29:04 Medications Name Sig Start Date Stop Date Status Note LastModified by Organization Details LastModified Time atorvasta tin 40 mg tablet TAKE 1 TABLET BY MOUTH EVERY DAY 2024 active Not Available Not Available Not Avai lable promethaz ine-DM 6.25 mg-15 mg/5 mL oral syrup Take 10 mL every 6 hours by oral route for 10 days. 08/23 completed Not Available Not Available Not Available azithromy jennifer 250 mg tablet TAKE 2 TABLETS (500 MG) BY ORAL ROUTE ONCE DAILY FOR 1 DAY THEN 1 TABLET (250 MG) BY ORAL ROUTE ONCE DAILY FOR 4 DAYS 03/16 completed Not Available Not Available Not Available benzonata te 200 mg capsule TAKE 1 CAPSULE BY MOUTH THREE TIMES DAILY NEEDED 08/23 completed Not Available Not Available Not Available hydrocodo ne 5 mg-acetam inophen 325 mg tablet 01/06 completed Not Available Not Available Not Available prednison e 20 mg tablet Take 2 tablets every day by oral route for 5 days. 08/23 completed Not Available Not Available Not Available rizatript an 10 mg tablet TAKE 1 TABLET BY MOUTH EVERY DAY NEEDED 08/02 completed Not Available Not Available Not Available levothyro xine 100 mcg tablet TAKE 1 TABLET BY MOUTH EVERY DAY DIRECTED active Not Available Not Available No t Available levothyro xine 88 mcg tablet TAKE 1 TABLET BY MOUTH EVERY DAY 01/06 completed Not Available Not Available Not Available famotidin e 20 mg tablet TAKE 1 TABLET BY MOUTH TWICE DAILY active Not Available Not Available No t Available prednisol one acetate 1 % eye drops,rowdy pension SHAKE LIQUID AND INSTILL 1 DROP IN RIGHT EYE THREE TIMES DAILY active Not Available Not Available No t Available clindamyc in 1 % topical gel APPLY THIN LAYER TOPICALL Y TO THE AFFECTED AREA TWICE DAILY 06/18 completed Not Available Not Available Not Available levothyro xine 50 mcg tablet TAKE 1 TABLET BY MOUTH EVERY DAY 08/02 completed Not Available Not Available Not Available hydrocodo ne 7.5 mg-acetam inophen 325 mg tablet 01/06 completed Not Available Not Available Not Available cephalexi n 500 mg capsule TAKE 1 CAPSULE BY MOUTH THREE TIMES DAILY FOR 7 DAYS 03/16 completed Not Available Not Available Not Available pantopraz ole 40 mg tablet,de layed release TAKE 1 TABLET BY MOUTH EVERY DAY active Not Available Not Available No t Available Mylanta 200 mg-200 mg-20 mg/5 mL oral suspensio n 2011 active Recorded 07/07/19 14 9:37AM by Valerie Shay LPN, Office Visit; Refill Quantity : 0; Not Available Not Available Not Available levofloxa jennifer 750 mg tablet Take 1 tablet every day by oral route for 7 days. 08/23 completed Not Available Not Available Not Available ondansetr on 4 mg disintegr ating tablet DISSOLVE 1 TABLET ON THE TONGUE EVERY 6 HOURS NEEDED FOR NAUSEA OR VOMITING 08/23 completed Not Available Not Available Not Available levothyro xine 112 mcg tablet TAKE 1 TABLET BY MOUTH EVERY DAY active Not Available Not Available No t Available cyclobenz aprine 5 mg tablet TAKE 1 TABLET BY MOUTH THREE TIMES DAILY FOR 5 DAYS NEEDED 08/23 completed Not Available Not Available Not Available aspirin daily 01/06 completed 0; Recorded 05/01/19 23 8:13AM by Valerie Shay LPN, Office Visit; Not Available Not Available Not Available famotidin e daily 03/09 completed 0; Recorded 05/01/19 23 8:13AM by Valerie Shay LPN, Office Visit; Not Available Not Available Not Available Plavix daily 12/18 completed 0; Recorded 05/01/19 23 8:13AM by Valerie Shay LPN, Office Visit; Not Available Not Available Not Available Vitamin D3 two times daily 12/18 completed vo KM/; Recorded 10/29/19 22 7:05AM by Valerie Shay LPN, Office Visit; Refill Quantity : 60; Capsule; Not Available Not Available Not Available levocetir izine 5 mg tablet TAKE 1 TABLET BY MOUTH TWICE DAILY active Not Available Not Available No t Available Vitals Date Recorded Body height Body mass index (BMI) Body weight Oxygen saturation Oxygen saturation in Arterial blood by Pulse oximetry Heart rate Respiratory rate Body temperature Systolic And Diastolic Provider Name and Address Organization Details Last Updated DateTime 5 155.58 cm 24.4 kg/m2 87308.0 1 g 97 % 97 % 76 /min 18 /min 97 [degF] 140/80 mm[Hg] VALERIE SHAY [facility] 5 15:10:49 Date Recorded Body height Body mass index (BMI) Body weight Oxygen saturation Oxygen saturation in Arterial blood by Pulse oximetry Heart rate Respiratory rate Body temperature Systolic And Diastolic Provider Name and Address Organization Details Last Updated DateTime 5 155.58 cm 24.7 kg/m2 60880.1 9 g 97 % 97 % 72 /min 18 /min 97.2 [degF] 136/80 mm[Hg] VALERIE SHAY [facility] 5 12:09:29 Date Recorded Body height Body mass index (BMI) Body weight Body temperature Heart rate Oxygen saturation Oxygen saturation in Arterial blood by Pulse oximetry Systolic And Diastolic Provider Name and Address Organization Details Last Updated DateTime 4 155.58 cm 24.2 kg/m2 26958.4 2 g 98.3 [degF] 71 /min 99 % 99 % 142/64 mm[Hg] Laura Darrin [facility] 4 09:37:14 Date Recorded Body height Body mass index (BMI) Body weight Oxygen saturation Oxygen saturation in Arterial blood by Pulse oximetry Heart rate Respiratory rate Body temperature Systolic And Diastolic Provider Name and Address Organization Details Last Updated DateTime 4 155.58 cm 23.8 kg/m2 73613.2 3 g 97 % 97 % 78 /min 20 /min 97 [degF] 138/80 mm[Hg] VALERIE SHAY [facility] 4 11:23:47 Social History Question Answer Notes LastModified by Organizat ion Details LastModified Time Tobacco Smoking Status Never Smoker VALERIE england [facility] 12/18/2022 09:55:04 Are You Blind Or Do You Have Difficulty Seeing? No Information not available 12/18/2022 What Is Your Level Of Caffeine Consumption? Occasional Information not available 12/18/2022 Are You Deaf Or Do You Have Serious Difficulty Hearing? No Information not available 12/18/2022 What Is The Highest Grade Or Level Of School You Have Completed Or The Highest Degree You Have Received? [id number] Information not available 12/18/2022 Do You Have Difficulty Walking Or Climbing Stairs? No Information not available 12/18/2022 Are You Currently In School? No Information not available 12/18/2022 Sex: Unknown Functional Status Question Answer Note LastModified by Organizat ion Details LastModified Time Do you use any illicit or recreational drugs? No [facility] Information not available 12/18/2022 Do you or have you ever used any other forms of tobacco or nicotine? No Information not available 12/18/2022 What is your level of alcohol consumption? None Information not available 12/18/2022 Are you currently employed? No Information not available 12/18/2022 Do you have transportation difficulties? No Information not available 12/18/2022 Are you able to walk independently without assistance or assistive devices? YESWOREST [facility] Information not available 12/18/2022 Do you have difficulty doing errands alone? No [facility] Information not available 12/18/2022 Are you able to care for yourself independently? Yes [facility] Information not available 12/18/2022 Do you have difficulty dressing, bathing, grooming, or toileting? No [facility] Information not available 12/18/2022 Mental Status Question Answer Note LastModified by Organization D etails LastModified Time Do you have difficulty concentrating, remembering or making decisions? No [facility] Information no t available 12/18/2022 Family History Nothing Reported. Medical History No medical history recorded. Gynecological HistoryNo gynecological history recorded. Obstetrics History GPAL:G 0 P 0 0 0 0 Immunizations Vaccine Type Date Status Note Provider Nam e and Address Organization Details Recorded Time Hep A, ped/adol, 3 dose 06/05/1996 completed [place], [address], [facility], [place] 12/18/2022 10:03:59 Hep A, ped/adol, 3 dose 12/20/1996 completed ESTRELLA ANDERSON PA-C [address] [place], [address], [facility] LD[facility]LD[facility]estiney 12/18/2022 10:03:59 Past Encounters Encounter ID Performer Location Encounter Start Date Encounter Closed Date Diagnosis/Indication Diagnosis SNOMED-CT Code Diagnosis ICD10 Code Diagnosis IMO Codes Diagnosis Note [id number] ESTRELLA ANDERSON PA-C [facility] ([facility]) [address] [place] [address] 12/18/2022 09:31:11 12/18/2022 13:46:32 Screening mammography 02343778 Z12.31 Chronic te nsion-type headache 238763031 G44.229 Hyperlipidemia 14284024 E78.5 Hypothyroidism 92454528 E03.9 CCA form filled out during today's office visit Gastroesop hageal reflux disease 630231647 K21.9 Acne 97948126 L70.9 [id number] ESTRELLA ANDERSON PA-C [facility] ([facility]) [address] [place] [phone] 03/09/2023 14:06:10 04/03/2023 06:17:09 Pain of right knee joint 7264719844 13110 M25.561 Chronic constipation 236 269420 K59.09 colonoscop y 2019 Gastroesop hageal reflux disease 114602187 K21.9 [id number] ESTRELLA ANDERSON PA-C [facility] ([facility]) [address] [place] [address] 06/18/2023 09:48:13 06/18/2023 10:45:05 Migraine 23554710 G43.909 Hypothyroidism 65219155 E03.9 CCA form filled out during today's office visit Hyperlipidemia 47244943 E78.5 Allergy to sfenjghue-boihn-8,3 galactose 754677760 Z88.8 [id number] ESTRELLA ANDERSON PA-C [facility] ([facility]) [address] [place] [address] 08/03/2023 09:40:52 08/03/2023 10:40:41 Hyperlipidemia 63183183 E78.5 Hypothyroidism 62918519 E03.9 Loss of hair 387735242 L 65.9 Migraine 24373862 G43.90 9 sample of nutrec given [id number] ESTRELLA ANDERSON PA-C [facility] ([facility]) [address] [place] [address] 5 08/09/2023 09:26:54 08/10/2023 14:16:55 Hypothyroidism 67989739 E03.9 [id number] ESTRELLA ANDERSON PA-C [facility] ([facility]) [address] [place] [phone] 01/07/2024 09:49:16 01/07/2024 10:46:56 Hypothyroidism 09792105 E03.9 Neck pain 26529277 M54.2 handout for neck and shoulder stretches. [id number] ESTRELLA ANDERSON PA-C [facility] ([facility]) [address] [place] [address] 01/28/2024 11:32:33 01/28/2024 14:52:03 Concussion with loss of consciousness 74708906 S06.0X9D Headache 56276571 R51.9 Ataxic gait 66889818 R26 .0 [id number] PIPPA JOSHUA [facility] ([facility]) [address] [place] [address] 5 03/08/2024 09:26:42 03/08/2024 14:00:31 Acute bacterial bronchitis 209139200 J20.9 Discussed use of otc medication s for symptom management .Push oral fluids and rest.If you develop fever, sob, or start feeling worse then return for re-evaluat ion. [id number] ESTRELLA ANDERSON PA-C [facility] ([facility]) [address] [place] [address] 5 03/16/2024 11:14:05 03/16/2024 12:14:00 Community acquired pneumonia 699318140 J18.9 [id number] ESTRELLA ANDERSON PA-C [facility] ([facility]) [address] [place] [phone] 5 08/23/2024 14:22:31 08/24/2024 12:27:20 Pain of hip region 12923505 M25.552 [id number] no fx seen on xray. overread normal as wellICe stretch. increase activity as toleratedS he declined PT referral Acquired hypothyroidism 241143323 E03.9 03338 Pure hypercholesterolemia 035113926 E78.00 [id number] ESTRELLA ANDERSON PA-C [facility] ([facility]) [address] [place] [address] 10/20/2024 11:12:15 11/07/2024 15:11:32 Hyperlipidemia 52276533 E78.5 Gastroesop hageal reflux disease without esophagitis 591148977 K21.9 020669 Hiatal hernia 34128318 K 44.9 9218 Weakness o f bilateral lower limb 4023800103 89413 R29.898 083418 Intermittent vertigo 103 990528 R42 110020 Recurrent falls 27576451 2 R29.6 2654200 Fatigue 58178171 R53.82 498233 Physical examination 588 0005 Z00.00 760701 [id number] ESTRELLA ANDERSON PA-C [facility] ([facility]) [address] [place] [address] 10/23/2024 09:20:13 10/24/2024 09:56:37 Fatigue 92461519 R53.82 Hyperlipidemia 53881842 E78.5 Health Concerns Section Related Observation LastModified by Organization Detai ls LastModified Time None Recorded Concern Status LastModified by Organization Details LastModified Time None Recorded Advance Directives Directive None Recorded Payers Insurance Date Sequence Insurance Name Policy Number Policy Rushing Covered Member ID Rushing Member ID Guarantor Name 02/05/2025 [place] - [facility]ICARE[facility] Jihan S Rapelje [id number] Jihan S Rapelje 02/05/2025 1 [place] S Jihan S Rapelje [id number] Jihan S Rapelje 02/05/2025 2 [employer] (MEDICARE SUPPLEMENT) Jihan S Rapelje [id number] Jihan S Rapelje Notes Date Note Type Note Provider Name and Address Organization Details Recorded Time 4 text/html CoughReported by PatientROS as noted in the HPI walk in ptPt has a cough for a month that is getting worse. States she has hx of pneumonia. The cough is non productive. Has fever. PIPPA JOSHUA [address] [place], [address], [facility], [place] 03/08/2024 13:53:48 4 text/html Upper Respiratory SymptomsReported by PatientUpper Respiratory SymptomsFor quality, patient reportscongested,hacking cough,dry cough,bark-like cough, andnasal discharge. For associated symptoms, patient reportschest pain,shortness of breath,wheezing,difficulty breathing at night, andfatigue. For location, patient reportschestandnasal. For severity, patient reportsmoderate. For duration, patient reportssymptoms lasting over 2 weeks. For onset/timing, patient reportsgradual. For context, patient reportsno sick contacts,no foreign travel, andnon-smoker. For alleviating factors, patient reportsanalgesics,antihista mines, anddecongestant.on and off fever. The zpak is finished but it didn't help much and it made me sick to my stomach and the tessalon pearles didnt help much. Can Estrella see my ct of hip I had done on 03-08-24. ESTRELLA ANDERSON PA-C [address] [place], [address], [facility], [place] 03/16/2024 12:08:17 5 text/html Musculoskeletal PainReported by PatientHPIFor location, patient reportspain radiating to the buttocksbut reportsleft hip. For quality, patient reportssharp,tingling, anddull. For severity, patient reportsinterferes with sleepandinterferes with work/school. For duration, patient reportspresent <1 month(2 weeks ago). For timing, patient reportsconstant. For alleviating factors, patient reportsrestandchanging position. For aggravating factors, patient reportsmovement/positioning ,bending over, andtwisting. For adls affected, patient reportswalking,sweeping,mop ping,bathing,dressing,eatin g, andclimbing stairs. I fell 2 weeks ago while moving tree limbs and then in the garden and fell hard both days hurt my left hip that I had replaced last yearpoint to more her posterior glut when asked where her pain is ESTRELLA ANDERSON PA-C [address] [place], [address], [facility], [place] 08/24/2024 19:26:13 5 text/html FatigueReported by PatientHPIFor severity, patient reportschange in sleep patternsbut reportsnormal activityandmoderate. For associated symptoms, patient reportsheadache with onset after the fatigueandexertional fatigue. For quality, patient reportsgeneralized. For duration, patient reportschronicand>6 months. For timing, patient reportsgradual. For context, patient reportsthyroid disease. Medicare Annual Wellness VisitReported by PatientSocial/Behavioral HistoryFor fracture risk, patient reportsprevious musculoskeletal injuries. For diet and nutrition, patient reportshealthy diet,discussed vitamin and supplement use,discussed portion control,discussed maintaining calcium balance, anddiscussed diet improvement. For physical activity, patient reportsdiscussed weightbearing activitiesanddiscussed exercise habits.Mental Status:For depression risk, patient reportsno loss of interest in activities,no significant changes in weight,no sleep disturbances or insomnia,no agitation,no loss of energy,no feelings of worthlessness or guilt,no thoughts of suicide, andno history of mood disorders. For orientation, patient reportsno disorientation to time,no disorientation to date, andno disorientation to place. For concentration and memory, patient reportsno decreased concentrating ability,no memory lapses or loss, anddoes not forget words. For speech/motor difficulties, patient reportsno speech difficulties,no difficulty expressing formulated concepts,no difficulty with fine manipulative tasks,no difficulty writing/copying,no slowed reaction time, anddoes not knock things over when trying to pick them up.Functional AbilityFor hearing, patient reportsno loss of hearing. For activities of daily living, patient reportsable to bathe with limited or no assistance,able to contol urination and bowels,able to dress with limited or no assistance,able to feed self with limited or no assistance,able to get out of chair or bed with limited or no assistance,able to groom with limited or no assistance, andable to toilet with limited or no assistance. For instrumental activities of daily living, patient reportsable to do house work with limited or no assistance,able to grocery shop with limited or no assistance,able to manage medications with limited or no assistance,able to manage money with limited or no assistance,able to prepare meals with limited or no assistance, andable to use the phone with limited or no assistance. For falls risk assessment, patient reportsfall(s) in the past year 5andfall(s) since last visit0. For home safety, patient reportsno unsafe aminta hazzards,no unsafe stairs,working smoke/co detectors,use of seatbelts,has hand bars in the bathroom/shower,good lighting in the home,reviewed sun protection, andnumber of motor vehicle accidents 0. For vision, (wears readers). I probably needs labs and my urine is strong no uti symptoms. I would like my mammogram done at [facility]. ESTRELLA ANDERSON PA-C [address] [place] [address], [address], [facility], [place] 11/07/2024 09:27:18 OBGyn Episode No OBEpisode recorded.
--- NOTE | 2025-02-08 23:37 | CTR_ITS ---
PROCEDURE INFORMATION: Exam: CT Head Without Contrast Exam date and time: 02/09/2025 12:14 AM Age: 74 years old Clinical indication: Pain; Headache; Additional info: VENEGAS TECHNIQUE: Imaging protocol: Computed tomography of the head without contrast. Radiation optimization: All CT scans at this facility use at least one of these dose optimization techniques: automated exposure control; mA and/or kV adjustment per patient size (includes targeted exams where dose is matched to clinical indication); or iterative reconstruction. COMPARISON: CT head wo con* [id number] 10/05/2024 7:34 PM RADIATION DOSE METRICS: Total DLP (mGy-cm): 1049.19 FINDINGS: Brain: No acute infarction, hemorrhage, mass, or extra-axial fluid collection is identified. No midline shift. Chronic white matter microangiopathy and generalized atrophy. Cerebral ventricles: No hydrocephalus. Paranasal sinuses: Paranasal sinuses are grossly clear. Mastoid air cells: Mastoid air cells are grossly clear. Bones: Calvarium appears intact. Soft tissues: Unremarkable. CT/CT head wo con* [id number] IMPRESSION: No acute intracranial abnormality.
--- NOTE | 2025-02-08 23:37 | XRR_ITS ---
PROCEDURE INFORMATION: Exam: XR Chest Exam date and time: 02/08/2025 11:52 PM Age: 74 years old Clinical indication: Pain; Angina pectoris; Additional info: Cp TECHNIQUE: Imaging protocol: Radiologic exam of the chest. Views: 1 view. COMPARISON: CT chest [facility] [id number] 10/05/2024 7:34 PM FINDINGS: Lungs: Unremarkable. No consolidation. Pleural spaces: Unremarkable. No pleural effusion. No pneumothorax. Heart/Mediastinum: Unremarkable. No cardiomegaly. Bones/joints: Unremarkable. XR/XR chest 1V portable [id number] IMPRESSION: No acute findings.
--- NOTE | 2025-02-08 23:42 | W.ED.HA ---
HPI - Headache General: Chief Complaint: Nausea/Vomiting/Diarrhea Stated Complaint: Headache\V\New Medicine Time Seen by Provider: 02/08/25 23:34 Source: patient Mode of arrival: ambulatory Limitations: no limitations History of Present Illness: 74-year-old female states she had just recently started taking isosorbide 3 days ago she states that today around noon she started to get a headache that gradually worsened throughout the day is now 9 out of 10 she states she has had vomiting with the headache. States she has got some slight chest pain she feels like from vomiting as it is a burning sensation she did have a recent cardiac cath that was negative she denies any fevers denies any worse improved factors. Related Data Home Medications ?Medication ?Instructions ?Recorded ?Confirmed levocetirizine 5 mg tablet 5 mg PO BID 07/10/19 02/02/25 levothyroxine 125 mcg tablet 112 mcg PO DAILY 03/06/22 02/02/25 atorvastatin 40 mg tablet 40 mg PO DAILY 09/04/22 02/02/25 pantoprazole 40 mg tablet,delayed 40 mg PO DAILY 03/29/23 02/02/25 release Previous Rx's ?Medication ?Instructions ?Recorded clopidogrel 75 mg tablet 75 mg PO DAILY #90 tabs 07/21/21 famotidine 20 mg tablet See Rx Instructions .Route 10/14/23 .COMPLEX #180 tabs isosorbide mononitrate 30 mg 30 mg PO DAILY #90 tabs 02/02/25 tablet,extended release 24 hr ondansetron 4 mg disintegrating 4 mg PO Q6H PRN nausea and 02/09/25 tablet vomiting #14 tabs Allergies Allergy/AdvReac Type Severity Reaction Status Date / Time Beef Containing Products Allergy Unknown Unknown Verified 01/25/25 14:05 Pork/Porcine Containing Allergy Unknown Unknown Verified 01/25/25 14:05 Products Alpha-Gal Allergy ALGY-Rash Verified 01/25/25 14:05 (Mliirukfc-Ryrww-6,3-Gala tetanus toxoid, adsorbed Allergy facial Verified 01/25/25 14:05 swelling Review of Systems Neuro: Reports: headache(s) [facility] PFSH: Medical History (Updated 02/09/25 @ 02:33 by Anthony Garcia MD) Presence of stent in LAD coronary artery Rheumatoid arthritis Barretts esophagus GERD (gastroesophageal reflux disease) Dyslipidemia CAD (coronary artery disease) HTN (hypertension) Family History Father CAD (coronary artery disease) Family history of premature coronary artery disease Hypertension Mother CAD (coronary artery disease) Grandfather CAD (coronary artery disease) Family/Other Cancer Diabetes Suicide Sister Diabetes Denies family history of Clotting disorder Dementia Hyperlipidemia Psychiatric illness Chronic kidney disease (CKD) Anesthesia complication Bleeding disorder Lung disease Stroke Social History Smoking and tobacco/nicotine status: never used tobacco/nicotine Second hand smoke exposure: Yes Alcohol intake: never Substance/Drug Use: never Physical Exam Const: COMMON NORMALS: no acute distress, patient oriented x3 and healthy appearing HENMT: COMMON NORMALS: normocephalic and atraumatic HEAD & SCALP: normocephalic and atraumatic Eye: COMMON NORMALS: Equal, round and reactive pupils present and EOMs intact bilaterally PUPIL: Yes Equal, round and reactive pupils present Neck/C-Spine: COMMON NORMALS: full ROM and supple Chest: COMMONS NORMALS: normal inspection of the chest and normal palpation of entire chest wall Resp: COMMON NORMALS: normal respiratory effort, No retractions, No use of accessory muscles and clear to auscultation bilaterally AUSCULTATION: clear to auscultation bilaterally Cardio: COMMON NORMALS: regular rate, regular rhythm and No murmurs present (Cardio) RATE: regular rate RHYTHM: regular rhythm GI: COMMON NORMALS: Normal to inspection, nondistended, normoactive bowel sounds present, Soft to palpation, non-tender and no masses PALPATION: Yes Soft to palpation Extremity: COMMON NORMALS: normal to inspection and full ROM Neuro: COMMON NORMALS: patient oriented x3, moves all extremities and no focal motor deficits Psych: COMMON NORMALS: mental status grossly normal, Normal thought process present and cooperative THOUGHT PROCESS: Normal thought process present Skin: COMMON NORMALS: no rashes or lesions noted and no wounds GENERAL SKIN EXAM: no rashes or lesions noted Course Vital Signs: Vital signs: Vital Signs Temperature 98.4 F 02/08/25 23:43 Pulse Rate 69 02/09/25 03:02 Respiratory Rate 15 02/09/25 01:16 Blood Pressure 126/68 02/09/25 03:02 Pulse Oximetry 98 02/09/25 03:02 Oxygen Delivery Me thod Room Air 02/09/25 03:02 MDM - Headache Medical Decision Making Jihan presents here with headache has gradually worsened throughout the day along with some vomiting. Differential include meningitis, subarachnoid hemorrhage, these were unlikely as her head CT here is normal and was not a thunderclap headache conversant and she had no fever no nuchal rigidity no sign of meningitis. She had some mild chest pains that was likely from her vomiting with no signs of esophageal rupture her EKG here was normal with normal sinus rhythm heart rate [address] elevation QRS 88 QTc 430. Her troponin here was negative as well and she had a recent negative cardiac cath. Headache is likely due to her isosorbide she felt much improved here after Zofran and morphine she has had no more vomiting here. Blood work here was normal including normal white count. I did go over all of her labs and her imaging with her. Her headache is completely resolved she is stable for discharge we will prescribe her Zofran for home she is to follow-up with PCP and return if worsening she understands agrees to plan. Medical Records I reviewed the patient's medical records. Lab Data I reviewed the patient's lab results. 02/09/25 00:27 02/09/25 00:27 Radiology Impressions Chest X-Ray 02/08/25 23:37 IMPRESSION: No acute findings. Head CT 02/08/25 23:37 IMPRESSION: No acute intracranial abnormality. Abdomen/Pelvis CT 02/09/25 01:02 IMPRESSION: 1. No acute abdominopelvic process to explain the patient's symptoms. 2. Large hiatal hernia without evidence of gastric outlet obstruction. 3. Grade 1 retrolisthesis at L4-L5. Laboratory Results WBC 10.92 10^3/uL (3.29-11.43) 02/09/25 00:27 RBC 4.58 10^6/uL (3.85-5.65) 02/09/25 00:27 Hgb 12.10 g/dL (11.27-16.99) 02/09/25 00:27 Hct 37.9 % (36-47) 02/09/25 00:27 MCV 82.8 fl (85-98) L 02/09/25 00:27 MCH 26.4 pg (27-33) L 02/09/25 00:27 MCHC 31.9 g/dL (30-55) 02/09/25 00: RDW 14.1 % (12.1-15.1) 02/09/25 00: Plt Count 398 10^3/cmm (157-399) 02/09/25 00: MPV 10.0 fL (7.4-10.4) 02/09/25 00: Neut % (Auto) 63.9 % 02/09/25: Lymph % (Auto) 28.6 % 02/09/25 00: [place] % (Auto) 6.0 % 02/09/25 00: Eos % (Auto) 0.4 % 02/09/25: Baso % (Auto) 0.6 % 02/09/25: Neut # (Auto) 6.99 10^3/uL (1.8-7.7) 02/09/25 00: Lymph # (Auto) 3.1 10^3/uL (0.8-4.8) 02/09/25 00: [place] # (Auto) 0.7 10^3/uL (0.2-0.9) 02/09/25 00: Eos # (Auto) 0.0 10^3/uL (0.0-0.8) 02/09/25 00: Baso # (Auto) 0.1 10^3/uL (0.0-0.1) 02/09/25 00: Nucleated RBC % (auto) 0 % 02/09/25: Nucleated RBCs # 0.0 /100WBC 02/09/25 00: Sodium 137 mmol/L (136-145) 02/09/25 00: Potassium 4.0 mmol/L (3.5-5.1) 02/09/25 00: Chloride 100 mmol/L (98-107) 02/09/25 00: Carbon Dioxide 20 mmol/L (22-29) L 02/09/25 00: Anion Gap 21.0 (5-19) H 02/09/25 00: BUN 18 mg/dL (8-23) 02/09/25 00: Creatinine 0.9 mg/dL (0.5-0.9) 02/09/25 00: GFR Calculation Not Reportable 02/09/25 00: Glucose 139 mg/dL (65-115) H 02/09/25 00:27 Calculated Osmolality 288 mOsm/kg (285-295) 02/09/25 00: Calcium 9.2 mg/dL (8.5-10.5) 02/09/25 00:27 Total Bilirubin 0.5 mg/dL (0.15-1.2) 02/09/25 00:27 AST 16 U/L (0-32) 02/09/25 00:27 ALT 12 U/L (0-33) 02/09/25 00:27 Alkaline Phosphatase 112 U/L (35-105) H 02/09/25 00: Troponin T Baseline 9 ng/L (0-10) 02/09/25 00:27 Total Protein 7.1 g/dL (6.6-8.7) 02/09/25 00:27 Albumin 4.5 g/dL (3.5-5.2) 02/09/25 00: Globulin 2.6 g/dL (1.3-4.6) 02/09/25 00:27 Lipase 55 U/L (13-60) 02/09/25 00:27 All radiology interpretation(s) finalized by discharge EKG Data EKG 1: I personally reviewed and interpreted this EKG as follows: EKG interpretation date: 02/08/25 EKG interpretation time: 23:35 Interpretation: nsr hr [address] elevation qrs 88 qtc 430 Discharge Plan Discharge Patient Disposition: Home Clinical Impression: Vomiting Headache Qualifiers: Headache type: unspecified Headache chronicity pattern: acute headache Intractability: not intractable Qualified Code(s): R51.9 - Headache, unspecified Condition: Stable Prescriptions: New ondansetron 4 mg tablet,disintegrating 4 mg PO Q6H PRN (Reason: nausea and vomiting) Qty: 14 0RF No Action levocetirizine 5 mg tablet 5 mg PO BID atorvastatin 40 mg tablet 40 mg PO DAILY pantoprazole 40 mg tablet,delayed release (DR/EC) 40 mg PO DAILY clopidogrel 75 mg tablet 75 mg PO DAILY Qty: 90 3RF famotidine 20 mg tablet See Rx Instructions .ROUTE .COMPLEX Qty: 180 3RF Dose Instruction: TAKE 1 TABLET BY MOUTH TWICE DAILY Rx Instructions: TAKE 1 TABLET BY MOUTH TWICE DAILY levothyroxine 125 mcg tablet 112 mcg PO DAILY isosorbide mononitrate 30 mg Tablet Extended Release 24 Hr 30 mg PO DAILY Qty: 90 1RF Discharge Orders: Discharge ED (Routine); Ordered 02/09/25 Ordered By: Anthony Garcia Referrals: Estrella Fabian PA [Primary Care Provider, Physicians Music Intern] - 4-7 days Discharge Diet: Advance as tolerated Discharge Activity: Resume usual activity Patient Instructions: Headache, Vomiting - Adult Print Language: Serbian Coding Level of Care Code ED 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
[2025-02-08 23:43] VITALS: BP 149/92; PULSE 83; RESP 16; TEMP 36.9; O2SAT 98
[2025-02-09] MEDS: ondansetron 2 mg/ML SDV 2 mL 4 MG IVP (00:07)
--- NOTE | 2025-02-09 00:07 | ECG_ITS ---
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 Measurements Intervals [place] Rate: 83 P: 25 ID: [id number] QRS: -21 QRSD: 89 T: 0 QT: 388 QTc: 456 Interpretive Statements SINUS RHYTHM LOW QRS VOLTAGE IN PRECORDIAL LEADS [QRS DEFLECTION < 1.0 mV IN CHEST LEADS] MINIMAL VOLTAGE CRITERIA FOR LVH, CONSIDER NORMAL VARIANT [MEETS CRITERIA IN ONE OF: R(aVL), S(V1), R(V5), R(V5/V6)+S(V1)] POSSIBLE ANTERIOR MYOCARDIAL INFARCTION , PROBABLY OLD [30 ms Q WAVE IN V3/V4, OR R < 0.2 mV IN V4] Compared to ECG 02/08/2025 23:35:19 Sinus arrhythmia no longer present Myocardial infarct finding still present Electronically Signed On 02-10-2025 12:08:59 CDT by Nasir Rasmussen M.D. [id number] [id number]
[2025-02-09 00:37] LABS: Hematocrit 37.9 % (36-47); Hemoglobin 12.10 g/dL (11.27-16.99); Mean Corpuscular HGB Conc 31.9 g/dL (30-55); Mean Corpuscular Hemoglobin 26.4 pg (27-33); Mean Corpuscular Volume 82.8 fl (85-98); Nucleated Red Blood Cells % 0 %; Platelet Count 398 10^3/cmm (157-399); Red Blood Count 4.58 10^6/uL (3.85-5.65); White Blood Count 10.92 10^3/uL (3.29-11.43)
[2025-02-09 00:56] LABS: Troponin(5th) Baseline 9 ng/L (0-10)
[2025-02-09 00:57] LABS: Alanine Aminotransferase 12 U/L (0-33); Albumin Level 4.5 g/dL (3.5-5.2); Alkaline Phosphatase 112 U/L (35-105); Anion Gap 21.0 (5-19); Aspartate Amino Transferase 16 U/L (0-32); Blood Urea Nitrogen 18 mg/dL (8-23); Calcium 9.2 mg/dL (8.5-10.5); Carbon Dioxide 20 mmol/L (22-29); Chloride 100 mmol/L (98-107); Globulin 2.6 g/dL (1.3-4.6); Glucose 139 mg/dL (65-115); Lipase 55 U/L (13-60); Osmolality Calculated 288 mOsm/kg (285-295); Potassium 4.0 mmol/L (3.5-5.1); Sodium 137 mmol/L (136-145); Total Protein 7.1 g/dL (6.6-8.7)
--- NOTE | 2025-02-09 01:02 | CTR_ITS ---
PROCEDURE INFORMATION: Exam: CT Abdomen And Pelvis With Contrast Exam date and time: 02/09/2025 1:48 AM Age: 74 years old Clinical indication: Vomiting TECHNIQUE: Imaging protocol: Computed tomography of the abdomen and pelvis with contrast. Radiation optimization: All CT scans at this facility use at least one of these dose optimization techniques: automated exposure control; mA and/or kV adjustment per patient size (includes targeted exams where dose is matched to clinical indication); or iterative reconstruction. Contrast material: OMNI 350; Contrast volume: 100 ml; Contrast route: INTRAVENOUS (IV); COMPARISON: CR XR hip LT 2-3V wo/w pel* [id number] 08/23/2024 2:36 PM RADIATION DOSE METRICS: Total DLP (mGy-cm): 514.82 FINDINGS: Diaphragm: A large hiatal hernia is present without gastric outlet obstruction. Associated basilar atelectasis is seen. Liver: A simple cyst is seen in the right shwetha liver. The liver is otherwise within normal limits. Gallbladder and biliary ducts: The gallbladder is surgically absent. No intra or extrahepatic bile duct dilatation is noted. Pancreas: Normal. No ductal dilation. Spleen: Normal. No splenomegaly. Adrenal glands: Normal. No mass. Kidneys and ureters: Normal. No hydronephrosis. Stomach and bowel: Unremarkable. No obstruction. No mucosal thickening. Appendix: The appendix is not clearly identified. No inflammation in the right lower quadrant is present to suggest acute appendicitis. Intraperitoneal space: Unremarkable. No free air. No significant fluid collection. Vasculature: Mild atherosclerosis of the aorta and its major branching vessels is noted. Mild atherosclerosis of the pelvic vasculature and its major branching vessels is noted. Lymph nodes: Unremarkable. No enlarged lymph nodes. Urinary bladder: Unremarkable as visualized. Reproductive: Unremarkable as visualized. Bones/joints: Grade 1 retrolisthesis of L4-L5. Intervertebral vacuum phenomena, consistent with chronic degenerative change. Partially imaged internal fixation of the left hip/proximal femur is noted. No acute complication. The bones appear osteopenic. Soft tissues: Unremarkable. CT/CT abdomen pelvis w con* [id number] IMPRESSION: 1. No acute abdominopelvic process to explain the patient's symptoms. 2. Large hiatal hernia without evidence of gastric outlet obstruction. 3. Grade 1 retrolisthesis at L4-L5.
[2025-02-09 01:12] VITALS: BP 136/81; PULSE 79; O2SAT 99
[2025-02-09] MEDS: metoclopramide 5 mg/mL SDV 2 mL IVP (01:15)
[2025-02-09 01:16] VITALS: RESP 15; O2SAT 95
[2025-02-09] MEDS: morphine 4 mg/mL SDV 1 mL IVP (01:16)
[2025-02-09 03:02] VITALS: BP 126/68; PULSE 69; O2SAT 98
== END 2025-02-09 03:09 | disposition home or self-care (01) ==
PROVIDERS: Emergency Provider Emergency Medicine; PCP Physician Assistant
DX: R11.10 Vomiting, unspecified (principal); R51.9 Headache, unspecified; Z79.02 Long term (current) use of antithrombotics/antiplatelets; E78.5 Hyperlipidemia, unspecified; I25.10 Atherosclerotic heart disease of native coronary artery without angina pectoris; I10 Essential (primary) hypertension
CPT/HCPCS: 36415; 70450; 71045; 74177; 80053; 83690; 84484; 85025; 93005; 96361; 96374; 96375; 99285; J2270; J2405; J2765; J7030